=== PATIENT | female | born 1945 | race Caucasian/White ===

== ENCOUNTER 2020-04-13 11:35 | Outpatient (REF) | payer MEDICARE, OTHER, SELFPAY ==
[2020-04-13 14:23] LABS: Hematocrit 37.1 % (37-47); Hemoglobin 11.7 g/dl (12.0-16.0); Mean Corpuscular HGB Conc 31.5 g/dl (31.0-35.0); Mean Corpuscular Volume 98.4 fL (80-98); Platelet Count 209 X10*3/uL (160-400); Red Blood Count 3.77 X10*6/uL (4.20-5.50); Red Cell Distribution Width 17.4 % (11.0-16.0); White Blood Count 14.7 X10*3/uL (4.8-10.8)
[2020-04-13 14:33] LABS: NRBC Pct Auto 2.1 /100WBC (0.0-0.2)
[2020-04-13 14:50] LABS: Anion Gap 14 (12-20); Blood Urea Nitrogen 16 mg/dL (9-16); Calcium 9.6 mg/dL (8.4-10.2); Carbon Dioxide 27 mmol/L (22-29); Chloride 103 mmol/L (96-108); Estimated Glomerular Filt Rate 54; Potassium 5.2 mmol/l (3.3-5.1); Sodium 139 mmol/L (135-145)
[2020-04-13 14:55] LABS: Band Neutrophils Percent 4 % (3-5); Basophils Percent Manual 7 % (0-1); Eosinophils Absolute Manual 0.4 X10*3/UL (0.0-0.8); Eosinophils Percent Manual 3 % (0-4); Lymphocytes Absolute Manual 2.1 X10*3/uL (0.6-4.8); Lymphocytes Percent Manual 14 % (20-40); Metamyelocytes Absolute 0.6 X10*3/uL; Metamyelocytes Percent 4 %; Myelocytes Absolute 0.7 X10*/uL; Myelocytes Percent 5 %; Neutrophils Absolute Manual 9.8 X10*3/uL (2.2-7.9); Neutrophils Percent Manual 63 % (45-73); Nucleated Red Blood Cells 3 /100WBC (0-0); RBC Morphology NOTED
[2020-04-13 14:56] LABS: Ovalocytes 1+; Polychromasia 2+; Tear Drop Cells 1+
[2020-04-13 14:58] LABS: Platelet Estimate NORMAL (NORMAL); Platelet Morphology Comment NORMAL
== END 2020-04-13 11:36 | disposition home or self-care (01) ==
LOC: HO.HMGCLDS 11:35
PROVIDERS: PCP Internal Medicine; Visit Provider Internal Medicine Hypertension Specialist
DX: I12.9 Hypertensive chronic kidney disease with stage 1 through stage 4 chronic kidney disease, or unspecified chronic kidney disease (principal); N18.2 Chronic kidney disease, stage 2 (mild)
CPT/HCPCS: 36415; 80051; 82310; 82565; 84520; 85007; 85027

== ENCOUNTER 2020-11-12 07:50 | Outpatient (REF) | payer MEDICARE, OTHER, SELFPAY ==
[2020-11-12 11:45] LABS: Hematocrit 29.4 % (37-47); Hemoglobin 9.6 g/dl (12.0-16.0); Mean Corpuscular HGB Conc 32.7 g/dl (31.0-35.0); Mean Corpuscular Hemoglobin 31.1 pg (27.0-33.0); Mean Corpuscular Volume 95.1 fL (80-98); NRBC Pct Auto 0.9 /100WBC (0.0-0.2); Platelet Count 216 X10*3/uL (160-400); Red Blood Count 3.09 X10*6/uL (4.20-5.50); Red Cell Distribution Width 17.9 % (11.0-16.0)
[2020-11-12 11:48] LABS: WBC ABN SCTR FOR CBC 1
[2020-11-12 12:04] LABS: Alanine Aminotransferase 31 U/L (0-31); Albumin Level 4.1 g/dL (3.5-5.0); Alkaline Phosphatase 117 U/L (39-117); Anion Gap 14 (12-20); Aspartate Amino Transferase 20 U/L (5-31); Bilirubin Total 0.4 mg/dL (0.0-1.0); Blood Urea Nitrogen 27 mg/dL (9-16); Calcium 8.8 mg/dL (8.4-10.2); Carbon Dioxide 25 mmol/L (22-29); Chloride 96 mmol/L (96-108); Estimated Glomerular Filt Rate 46; Glucose Random 89 mg/dL (60-115); Magnesium 2.5 mg/dL (1.6-2.6); Potassium 5.2 mmol/L (3.3-5.1); Sodium 130 mmol/L (135-145); Total Protein 6.3 g/dL (6.5-8.0); Uric Acid 3.8 mg/dL (2.4-5.7)
[2020-11-12 12:28] LABS: Thyroid Stimulating Hormone 1.81 uIU/mL (0.32-4.0)
[2020-11-12 12:31] LABS: Folate 17.7 ng/mL (> or = 4.0); Vitamin B12 757 pg/mL (200-900)
[2020-11-12 14:50] LABS: White Blood Count 19.6 X10*3/uL (4.8-10.8)
[2020-11-12 14:52] LABS: Band Neutrophils Percent 12 % (3-5); Basophils Abs Manual 1.2 X10*3/uL (0.0-0.3); Basophils Percent Manual 6 % (0-1); Blast Percent 2 %; Blastocytes Absolute 0.4 X10*3/uL; Eosinophils Percent Manual 5 % (0-4); Lymphocytes Absolute Manual 2.4 X10*3/uL (0.6-4.8); Lymphocytes Percent Manual 12 % (20-40); Metamyelocytes Percent 5 %; Monocytes Absolute Manual 0.6 X10*3/uL (0.0-1.2); Monocytes Percent Manual 3 % (2-11); Myelocytes Absolute 1.6 X10*/uL; Myelocytes Percent 8 %; Neutrophils Absolute Manual 10.8 X10*3/uL (2.2-7.9); Neutrophils Percent Manual 43 % (45-73); Nucleated Red Blood Cells 1 /100WBC (0-0); Promyelocytes Absolute 0.8 X10*3/uL; Promyelocytes Percent 4 %; RBC Morphology NOTED
[2020-11-12 14:53] LABS: Acanthocytes 2+ (3-5) /OIF; Macrocytosis 1+ (5-14) /OIF; Microcytosis 1+ (5-14) /OIF; Polychromasia 1+ (0-2) /OIF; Schistocytes 2+ (3-5) /OIF; Tear Drop Cells 2+ (3-5) /OIF
[2020-11-12 14:54] LABS: Giant Platelet PRESENT; Platelet Estimate NORMAL (NORMAL); Platelet Morphology Comment NOTED
== END 2020-11-12 07:51 | disposition home or self-care (01) ==
LOC: HO.HMGCLDS 07:50
PROVIDERS: PCP Internal Medicine; Visit Provider Internal Medicine
DX: I10 Essential (primary) hypertension (principal)
CPT/HCPCS: 36415; 80053; 82607; 82746; 83735; 84439; 84443; 84550; 85007; 85027

== ENCOUNTER 2020-12-07 14:29 | Outpatient (REF) | payer MEDICARE, OTHER, SELFPAY ==
[2020-12-07 15:26] LABS: Anion Gap 15 (12-20); Blood Urea Nitrogen 19 mg/dL (9-16); Calcium 8.8 mg/dL (8.4-10.2); Carbon Dioxide 23 mmol/L (22-29); Chloride 96 mmol/L (96-108); Estimated Glomerular Filt Rate 55; Potassium 4.9 mmol/L (3.3-5.1); Sodium 129 mmol/L (135-145)
== END 2020-12-07 14:30 | disposition home or self-care (01) ==
LOC: HO.LAB 14:29
PROVIDERS: PCP Internal Medicine; Visit Provider Internal Medicine Hypertension Specialist
DX: I10 Essential (primary) hypertension (principal)
CPT/HCPCS: 36415; 80051; 82310; 82565; 84520

== ENCOUNTER 2021-02-01 09:20 | Outpatient (REF) | payer MEDICARE, OTHER, SELFPAY ==
--- NOTE | ~2021-02-01 | FL_ITS ---
EXAMINATION: FL BARIUM SWALLOW CLINICAL INFORMATION: Dysphasia. COMPARISON: None TECHNIQUE: Barium swallow examination is performed using fluoroscopic evaluation in addition to multiple fluoroscopic spot views. The patient is imaged both upright and prone and using both thick and thin sulfate along with effervescent granules. Fluoroscopy time: 1.4 minutes DAP: 4.053 Gycm2 Images: 33 FINDINGS: There is normal apposition of the vocal cords while saying E. There is normal elevation of the soft palate while saying candy. Patient was able to swallow a half-inch diameter barium tablet without difficulty. No nasopharyngeal reflux or tracheal aspiration. No Zenker's diverticulum. No persistent esophageal stricture was identified. There were a few tertiary contractions noted. A Schatzki's ring was identified at the gastroesophageal junction. There is a small hiatal hernia seen. There was gastroesophageal reflux to the chava which cleared slowly. No ulcerations identified. FL/FL barium swallow IMPRESSION: Schatzki's ring. Half-inch diameter tablet passed through the gastroesophageal junction. Small hiatal hernia with gastroesophageal reflux to the chava.
== END 2021-02-01 09:21 | disposition home or self-care (01) ==
LOC: HO.XRAY 09:20
PROVIDERS: PCP Internal Medicine; Visit Provider Otolaryngology
DX: R13.10 Dysphagia, unspecified (principal)
CPT/HCPCS: 74220

== ENCOUNTER 2021-02-12 13:49 | Outpatient (REF) | payer MEDICARE, OTHER, SELFPAY ==
[2021-02-12 14:18] LABS: Hemoglobin 10.5 g/dl (12.0-16.0); Mean Corpuscular HGB Conc 31.8 g/dl (31.0-35.0); Mean Corpuscular Hemoglobin 31.7 pg (27.0-33.0); Mean Corpuscular Volume 99.7 fL (80-98); Mean Platelet Volume 9.8 fL (9.4-12.3); Platelet Count 181 X10*3/uL (160-400); Red Blood Count 3.31 X10*6/uL (4.20-5.50); White Blood Count 14.6 X10*3/uL (4.8-10.8)
[2021-02-12 14:20] LABS: NRBC Pct Auto 3.2 /100WBC (0.0-0.2)
[2021-02-12 15:01] LABS: Band Neutrophils Percent 18 % (3-5); Basophils Abs Manual 1.2 X10*3/uL (0.0-0.3); Basophils Percent Manual 8 % (0-1); Blast Percent 3 %; Blastocytes Absolute 0.4 X10*3/uL; Eosinophils Absolute Manual 1.2 X10*3/UL (0.0-0.8); Eosinophils Percent Manual 8 % (0-4); Lymphocytes Absolute Manual 2.6 X10*3/uL (0.6-4.8); Lymphocytes Percent Manual 18 % (20-40); Monocytes Absolute Manual 1.2 X10*3/uL (0.0-1.2); Monocytes Percent Manual 8 % (2-11); Myelocytes Absolute 0.3 X10*/uL; Myelocytes Percent 2 %; Neutrophils Absolute Manual 7.6 X10*3/uL (2.2-7.9); Neutrophils Percent Manual 34 % (45-73); Nucleated Red Blood Cells 2 /100WBC (0-0); Promyelocytes Absolute 0.1 X10*3/uL; Promyelocytes Percent 1 %
[2021-02-12 15:02] LABS: Hypochromasia 1+ (5-14) /OIF; Macrocytosis 1+ (5-14) /OIF; Polychromasia 1+ (0-2) /OIF; RBC Morphology NOTED
[2021-02-12 15:03] LABS: Platelet Estimate NORMAL (NORMAL); Platelet Morphology Comment NORMAL; Tear Drop Cells 1+ (0-2) /OIF; WBC Morphology Comment DYSMORPHIC
== END 2021-02-12 13:50 | disposition home or self-care (01) ==
LOC: HO.LAB 13:49
PROVIDERS: PCP Internal Medicine; Visit Provider Internal Medicine
DX: I10 Essential (primary) hypertension (principal)
CPT/HCPCS: 36415; 85007; 85027

== ENCOUNTER 2021-03-21 17:55 | Inpatient (IN) | payer MEDICARE, OTHER, SELFPAY ==
[2021-03-21] VITALS (13 sets, daily range): BP systolic 122–179; BP diastolic 30–83; PULSE 81–100; RESP 16–20; TEMP 36.5–36.8; O2SAT 90–100; BMI 22.8
--- NOTE | ~2021-03-21 | CT_ITS ---
EXAMINATION: CT CHEST WITHOUT IV CONTRAST CT ABDOMEN AND PELVIS WITHOUT IV CONTRAST CLINICAL INFORMATION: 75-year-old female with clinical suspicion for pneumonia and small bowel obstruction. Previously dilated small bowel on 02/05/2020. History of polycythemia vera and myelofibrosis. COMPARISON: CT abdomen and pelvis from 02/02/2020. TECHNIQUE: Noncontrast multidetector CT imaging examination of the chest, abdomen and pelvis was performed. No IV contrast given. Axial images are displayed at 0.6 mm and 5 mm slice thickness. Coronal and sagittal reformatted images were generated at the technologist's workstation and submitted for review. This CT examination was performed using dose optimization techniques as appropriate, variously including the following: *Automated exposure control *Adjustment of mA and/or kV according to patient size (this includes techniques or standardized protocols for targeted exams where dose is matched to indication/reason for exam; i.e. extremities or head) *Use of iterative reconstruction technique DLP: 466 mGy-cm for the abdomen and pelvis CT and 529 mGy-cm for the chest CT FINDINGS: CHEST - LUNGS AND PLEURA: The patient was moving on this CT examination. Trachea and central bronchi are widely patent and normal in caliber. There is wall calcification of the tracheobronchial tree, a relatively common finding in elderly patients. No evidence of pulmonary edema, consolidation or pleural effusion. No pneumothorax. There is linear opacity of atelectasis in the lingula and lateral left lower lobe. MEDIASTINUM/LOWER NECK: The heart size is normal. Atherosclerotic calcification of coronary arteries and thoracic aorta. No aortic aneurysm. The mitral valve annulus is calcified. No pericardial effusion. Moderate sized sliding-type hiatal hernia has not significantly changed compared to 02/02/2020. No pneumomediastinum. Thyroid gland is grossly unremarkable. LYMPHATICS: No pathologic sized axillary, hilar or mediastinal lymph nodes. CHEST WALL/BONES: No chest wall mass or hematoma. Chronic, diffuse sclerosis of bones is noted in this patient with history of myelofibrosis. Evaluation of bones is partially limited by motion degradation of images. ABDOMEN AND PELVIS - HEPATOBILIARY: Liver has normal size, contour and attenuation. Gallbladder is unremarkable. No intrahepatic or extrahepatic bile duct dilatation. PANCREAS: No edema, mass or pancreatic ductal dilatation. SPLEEN: Chronically enlarged spleen measures approximately 15.5 cm craniocaudal. ADRENAL GLANDS: Normal. KIDNEYS AND URETERS: Kidneys are normal in size and attenuation. No nephrolithiasis, hydronephrosis or perinephric fluid collection. BOWEL AND PERITONEUM: No dilated bowel loops. No ascites or pneumoperitoneum. Colonic diverticulosis without diverticulitis. No mesenteric fat stranding. No evidence of inflammatory change or obstruction along the gastrointestinal tract. ABDOMINAL WALL: Unremarkable. VESSELS: Atherosclerosis of the abdominal aorta without aneurysm. No retroperitoneal hematoma. LYMPH NODES: No pathologic sized lymph nodes in the abdomen or pelvis. No inguinal lymphadenopathy. BLADDER AND PELVIC VISCERA: The uterus is absent. No adnexal mass. Urinary bladder has a grossly normal appearance. No pelvic free fluid. MUSCULOSKELETAL: Bones are chronically sclerotic in this patient with history of myelofibrosis. No acute abnormalities in the degenerated lumbar spine. There is vacuum disc phenomenon at L2-L3 and L4-L5. Chronic, grade 1 anterolisthesis at L3-L4 and L4-L5. CT/CT abdomen pelvis wo con IMPRESSION: * No evidence of pneumonia or pleural effusion. * Colonic diverticulosis without diverticulitis. * No evidence of small bowel obstruction. * Chronic splenomegaly and chronic osseous sclerosis are noted in this patient with history of polycythemia vera and myelofibrosis. * Moderate hiatal hernia.
--- NOTE | ~2021-03-21 | CT_ITS ---
EXAMINATION: CT HEAD WITHOUT CONTRAST CLINICAL INFORMATION: Headache COMPARISON: Head CT from 03/05/2018 and MRI brain from 03/06/2018 TECHNIQUE: Contiguous axial imaging was performed from the skull base to vertex without intravenous administration of contrast. This CT examination was performed using dose optimization techniques as appropriate, variously including the following: *Automated exposure control *Adjustment of mA and/or kV according to patient size (this includes techniques or standardized protocols for targeted exams where dose is matched to indication/reason for exam; i.e. extremities or head) *Use of iterative reconstruction technique DLP: 1245 mGy-cm FINDINGS: The patient was moving, not cooperating for the examination. Images were repeated but remained motion degraded. There is atherosclerotic calcification of cavernous carotid arteries. The mild small vessel ischemic changes of supratentorial white matter are better depicted on the brain MRI from 03/06/2018. Within limitations of this examination, there is no overt intracranial hemorrhage. No evidence of an acute major vascular territory infarction. The peres-white matter differentiation is maintained. The ventricles have normal size and configuration; no hydrocephalus. The brainstem and cerebellum are unremarkable. The calvarium has an intact appearance. The visualized paranasal sinuses, mastoid air cells and middle ear cavities are well aerated. The orbits and globes are unremarkable. CT/CT head/brain wo con IMPRESSION: Motion degraded CT examination of the brain. No evidence of acute intracranial pathology.
--- NOTE | 2021-03-21 18:33 | ECG_ITS ---
Test Reason : EPEAT Blood Pressure : / mmHG Vent. Rate : 153 BPM Atrial Rate : 153 BPM P-R Int : 140 ms QRS Dur : 074 ms QT Int : 320 ms P-R-T Axes : 035 057 049 degrees QTc Int : 510 ms Sinus tachycardia with Premature supraventricular complexes ST depression in Anterolateral leads Cannot rule out Inferior infarct (cited on or before 05-MAR-2018) Abnormal ECG When compared with ECG of 21-MAR-2021 18:27, Premature supraventricular complexes are now Present Vent. rate has increased BY [address] now depressed in Anterolateral leads Referred By: Erasmo Juarez Electronically Signed By:MANDIE JACOBSON
--- NOTE | 2021-03-21 18:45 | PC.NURSE ---
while this nurse was going to speak with charge nurse about the patient and where she should be placed, patient vomited on herself and floor and seemed to become less oriented than she was previously during triage, patient also began having rigors, myself and charge nurse assisted patient into wheelchair- pt seemed to have difficulty following directions as we assisted patient, she also looked very pale in color. patient was brought back to room 7, patient was hooked up to the laboratory monitor and a ekg was performed by this nurse and charge nurse. provider was notified.
[2021-03-21 18:49] LABS: Hematocrit 34.7 % (37-47); Hemoglobin 11.5 g/dl (12.0-16.0); Mean Corpuscular HGB Conc 33.1 g/dl (31.0-35.0); Mean Corpuscular Hemoglobin 30.7 pg (27.0-33.0); Mean Corpuscular Volume 92.8 fL (80-98); Mean Platelet Volume 9.6 fL (9.4-12.3); Platelet Count 187 X10*3/uL (160-400); Red Blood Count 3.74 X10*6/uL (4.20-5.50); Red Cell Distribution Width 15.5 % (11.0-16.0); White Blood Count 11.4 X10*3/uL (4.8-10.8)
[2021-03-21 18:52] LABS: NRBC Pct Auto 2.9 /100WBC (0.0-0.2)
[2021-03-21 19:03] LABS: Anion Gap 16 (12-20); Blood Urea Nitrogen 15 mg/dL (9-16); Calcium 10.2 mg/dL (8.4-10.2); Carbon Dioxide 25 mmol/L (22-29); Chloride 98 mmol/L (96-108); Creatinine Clr Calc Pharmacy 41.7; Estimated Glomerular Filt Rate 49; Glucose Random 111 mg/dL (60-115); Potassium 4.3 mmol/L (3.3-5.1); Sodium 135 mmol/L (135-145)
[2021-03-21 19:05] LABS: Adenovirus PCR Not Detected (Not Detect.); Bordetella parapertussis PCR Not Detected (Not Detect.); Bordetella pertussis PCR Not Detected (Not Detect.); Chlamydia pneumoniae PCR Not Detected (Not Detect.); Coronavirus 229E PCR Not Detected (Not Detect.); Coronavirus HKU1 PCR Not Detected (Not Detect.); Coronavirus NL63 PCR Not Detected (Not Detect.); Coronavirus OC43 PCR Not Detected (Not Detect.); Human metapneumovirus PCR Not Detected (Not Detect.); Influenza A PCR Not Detected (Not Detect.); Influenza B PCR Not Detected (Not Detect.); Mycoplasma pneumoniae PCR Not Detected (Not Detect.); Parainfluenza 1 PCR Not Detected (Not Detect.); Parainfluenza 2 PCR Not Detected (Not Detect.); Parainfluenza 3 PCR Not Detected (Not Detect.); Parainfluenza 4 PCR Not Detected (Not Detect.); RSV PCR Not Detected (Not Detect.); Rhino/Enterovirus PCR Not Detected (Not Detect.); SARS-CoV-2 PCR Not Detected (Not Detect.)
[2021-03-21 19:14] LABS: Troponin-I High Sensitivity 28.5 ng/L (<3.5-17.0)
[2021-03-21 19:18] LABS: Acanthocytes 1+ (0-2) /OIF; Atypical Lymph Absolute Manual 0.1 x10*3/uL; Atypical Lymphs Percent Manual 1 % (0-6); Band Neutrophils Percent 14 % (3-5); Basophils Abs Manual 1.4 X10*3/uL (0.0-0.3); Basophils Percent Manual 12 % (0-1); Eosinophils Absolute Manual 0.6 X10*3/UL (0.0-0.8); Eosinophils Percent Manual 5 % (0-4); Large Platelet PRESENT; Lymphocytes Absolute Manual 0.9 X10*3/uL (0.6-4.8); Lymphocytes Percent Manual 8 % (20-40); Macrocytosis 1+ (5-14) /OIF; Metamyelocytes Absolute 0.2 X10*3/uL; Metamyelocytes Percent 2 %; Monocytes Absolute Manual 0.6 X10*3/uL (0.0-1.2); Monocytes Percent Manual 5 % (2-11); Myelocytes Absolute 0.1 X10*/uL; Myelocytes Percent 1 %; Neutrophils Absolute Manual 7.3 X10*3/uL (2.2-7.9); Neutrophils Percent Manual 50 % (45-73); Nucleated Red Blood Cells 1 /100WBC (0-0); Platelet Estimate SLIGHTLY DECREASED (NORMAL); Platelet Morphology Comment AGRANULAR; Promyelocytes Absolute 0.2 X10*3/uL; Promyelocytes Percent 2 %; RBC Morphology NOTED; Tear Drop Cells 2+ (3-5) /OIF
[2021-03-21 19:19] LABS: Polychromasia 2+ (3-5) /OIF
[2021-03-21] MEDS: LORazepam 2 MG/ML VIAL 1 MG IVPUSH ×2 (19:34→19:36)
[2021-03-21 19:37] LABS: Influenza A PCR NEGATIVE (Negative); Influenza B PCR NEGATIVE (Negative); Resp Syncy Virus RNA Qual PCR NEGATIVE (Negative); SARS COV2 PCR INHOUSE NEGATIVE (Negative)
--- NOTE | 2021-03-21 19:54 | ED_ITS ---
HPI - General Adult General Chief complaint: General Medical Stated complaint: headache n/v chills Time Seen by Provider: 03/21/21 18:30 Source: patient and family Mode of arrival: ambulatory Limitations: no limitations History of Present Illness HPI narrative: Patient presents to ED for headache, chills, and burping. Patient states she is extremely cold. Patient denies any coughing, abdominal pain, or any symptoms. Related Data Home Medications Medication Instructions Recorded Confirmed allopurinol 300 mg tablet 300 mg PO DAILY 04/20/20 03/21/21 aspirin 81 mg tablet,delayed 81 mg PO DAILY 04/20/20 03/21/21 release (Adult Aspirin Regimen) esomeprazole magnesium 20 mg 20 mg PO DAILY 04/20/20 03/21/21 capsule,delayed release melatonin 5 mg capsule 5 mg PO DAILY cap 04/20/20 03/21/21 multivitamin with minerals-folic 1 tab PO DAILY 04/20/20 03/21/21 acid 200 mcg chewable tablet (Adult Multivitamin Gummies) ruxolitinib 10 mg tablet (Jakafi) 15 mg PO BID tab 11/11/20 03/21/21 Previous Rx's Medication Instructions Recorded amlodipine 5 mg tablet 5 mg PO DAILY #90 tab 01/25/21 zolpidem 5 mg tablet (Ambien) 5 mg PO BEDTIME PRN 30 Days #30 tab 02/12/21 lorazepam 0.5 mg tablet 0.5 mg PO BEDTIME PRN 30 Days #30 03/18/21 tab Allergies Allergy/AdvReac Type Severity Reaction Status Date / Time Flu vaccine Allergy Unknown Whole arm Verified 03/21/21 18:10 redness/itchy Review of Systems Review of Systems: Yes all other systems are reviewed and are negative Constitutional: Constitutional: Reports as per HPI, Reports no additional constitutional complaints, Reports chills and Reports headache(s) Eyes: Eyes: Reports as per HPI and Reports no additional eye complaints ENT: Reports system reviewed and no additional complaints, except as documented, Reports as per HPI and Reports headache(s) Cardiovascular: Cardiovascular: Reports as per HPI and Reports no additional cardiovascular complaints Respiratory: Respiratory: Reports as per HPI and Reports no additional respiratory complaints Gastrointestinal: Gastrointestinal: Reports as per HPI and Reports no additional gastrointestinal complaints Musculoskeletal: Musculoskeletal: Reports no additional musculoskeletal complaints and Reports as per HPI Integumentary/Breasts: Skin/Breast: Reports system reviewed and no additional complaints, except as docu and Reports as per HPI Neurologic: Reports system reviewed and no additional complaints, except as documented, Reports as per HPI and Reports headache(s) Psychiatric: Psychiatric: Reports no additional psychiatric complaints and Reports as per HPI [facility] Past Medical History Medical History (Updated 03/21/21 @ 21:59 by DAHLIA Monet) Anxiety Fracture of left side of mandible GERD (gastroesophageal reflux disease) Hypertension Hypertriglyceridemia Mandibular fracture Migraine Myeloproliferative disorder SBO (small bowel obstruction) Surgical History History of arthroscopy of left knee History of colonoscopy History of esophagogastroduodenoscopy (EGD) History of reduction of closed fracture History of total abdominal hysterectomy and bilateral salpingo-oophorectomy Family History Family History Father Lung cancer Emphysema lung Mother History of hip replacement History of knee replacement Brother Thyroid nodule Social History Social History (Updated 12/07/20 @ 15:28 by BERYL Giron) Housing: House Alcohol intake: unknown Patient Tobacco Use Status: Never used Tobacco e-Cigarette/Vaping Use: Never Used Second Hand Smoke Exposure: No Advance Directives: No Advance Directives Information Provided: Yes service: No Current occupational status: retired Physical Exam Vital Signs: Vital Signs: Last Vital Signs Temp 98.3 F 03/21/21 18:10 Pulse 82 03/21/21 18:10 Resp 18 03/21/21 18:10 BP 179/67 H 03/21/21 18:10 Pulse Ox 98 03/21/21 18:10 Body Mass Index 22.8 Const: General: cooperative, healthy appearing and acute distress Orientation/consciousness: patient oriented x3 HENMT: Head: Yes normal to inspection, Yes No palpable skull fracture present, Yes normocephalic, Yes atraumatic and No abrasion Eyes: General: appearance normal, both eyes and all related structures Neck: Neck: Yes normal visual inspection, Yes full ROM, Yes no lymphadenopathy, Yes no meningeal signs, Yes trachea midline, Yes supple and No tender Chest: Chest palpation & inspection: normal inspection of the chest and normal palpation of entire chest wall Resp: Effort & Inspection: normal respiratory effort and able to speak in complete sentences Auscultation: clear to auscultation bilaterally Cardio: Jugular venous distension: no JVD Heart sounds: S1 normal heart sound present and S2 normal heart sound present GI: Inspection: Yes normal to inspection and No abdominal wall ecchymosis Palpation (GI): Soft to palpation, not firm, nontender, no guarding and not rigid : General: No CVA tenderness and Yes no CVA tenderness Back/Spine/Pelvis: Back: no CVA tenderness, No CVA tenderness and No back tenderness Skin: General skin exam: no rashes or lesions noted and elasticity normal Neuro: General: patient oriented x3, gait normal, no meningeal signs and CN's II-XI intact bilaterally Cranial nerves: Yes CN's II-XII intact bilaterally Extrem: General: Yes normal to inspection and Yes full ROM Psych: Appearance: grossly normal, well kempt and not disheveled Course Course Course Narrative: Patient will have medical evaluation which include COVID swelling and EKG, labs, imaging. Reevaluation(s) Reevaluation #1: During ED evaluation. Patient's mental status unchanged. Patient became aggressive. Patient began checking of her clothes. Patient began fighting with staff. Patient also vomiting. His CT scan, chest CT, abdominal CT came back normal. COVID swab is negative. EKG negative STEMI. First troponin positive. COVID swab, influenza, and RSV came back negative. Patient is not alert oriented x3. Patient is making random statements including that she wants to leave and she is cold. Spoke with George who states patient headache began since early this morning. He denies patient having any alcohol or drug abuse. He denies patient having any mental health issues. Patient is not on any diabetic medication. Waiting for UA analysis. Possible LP candidate. Patient given Haldol and Ativan order to draw lactate, coags, and urine. Time: 20:09 Reevaluation #2: Patient now alert oriented x3. Patient knows address. Patient knows name. Patient knows birthday. Patient knows her name. Ativan given to her it might have caused her to become altered patient was given Haldol which seemed to calm her and rear reoriented Time: 20:45 Reevaluation #3: Patient once again now and altered, aggressive, trying to take her clothes off, trying to get out of bed, hitting staff. Called and he states patient does not have any history of dementia and is always alert oriented x3. Due to waxing and waning of altered mental status with no cause for acute delirium lumbar puncture was discussed with Robert. Vazquez the agreed and gave consent for lumbar puncture. He was made aware of risks. Dr. Beasley witnessed agreeing to sedation and also lumbar puncture. Time: 21:01 Additional Reevaluation(s): Lumbar puncture was successful. Case presented to hospitalist, Dr. Ramos for admission. Dr. Beasley Will follow up with LP results. 21:59 2nd troponin came back 62.7 which is increase of more than 50%. Hospitalist made aware. Recommend contacting Cardiology. Dr. Ramos, recommended patient received antibiotics and antiviral treatment as we await lumbar puncture CSF results. 22:30. Spoke with Dr. Vance he was informed of patient's history, physical exam, and diagnostics. He was sent pictures of the EKG, troponin levels, and lactic acid. He does not recommend heparin and states most likely troponin due to sepsis. Hospitalist made aware. 22:38 Medical Decision Making MDM Narrative Medical decision making narrative: Altered mental status. Acute delirium Lab Data Result diagrams: 03/21/21 18:44 03/21/21 18:44 Labs: Lab Results 03/21/21 03/21/21 03/21/21 Range/Units 18:44 18:44 18:44 WBC 11.4 H (4.8-10.8) X10*3/uL RBC 3.74 L (4.20-5.50) X10*6/uL Hgb 11.5 L (12.0-16.0) g/dl Hct 34.7 L (37-47) % MCV 92.8 (80-98) fL MCH 30.7 (27.0-33.0) pg MCHC 33.1 (31.0-35.0) g/dl RDW 15.5 (11.0-16.0) % Plt Count 187 (160-400) X10*3/uL MPV 9.6 (9.4-12.3) fL Immature Gran % (Auto) Cancelled Neut % (Auto) Cancelled Lymph % (Auto) Cancelled [place] % (Auto) Cancelled Eos % (Auto) Cancelled Baso % (Auto) Cancelled Lymph # (Auto) Cancelled [place] # (Auto) Cancelled Eos # (Auto) Cancelled Baso # (Auto) Cancelled Abs Immat Gran (auto) Cancelled Absolute Neuts (auto) Cancelled Absolute Nucleated RBC 0.330 H (0.0-0.012) X10*3/uL Nucleated RBC % (auto) 2.9 H (0.0-0.2) /100WBC Neutrophils % (Manual) 50 (45-73) % Band Neutrophils % 14 H (3-5) % Lymphocytes % (Manual) 8 L (20-40) % Atypical Lymphs % (Man) 1 (0-6) % Monocytes % (Manual) 5 (2-11) % Eosinophils % (Manual) 5 H (0-4) % Basophils % (Manual) 12 H (0-1) % Metamyelocytes % 2 % Myelocytes % 1 % Promyelocytes % 2 % Abs Neuts (Manual) 7.3 (2.2-7.9) X10*3/uL Lymphocytes # (Manual) 0.9 (0.6-4.8) X10*3/uL Atyp Lymphs # (Manual) 0.1 x10*3/uL Monocytes # (Manual) 0.6 (0.0-1.2) X10*3/uL Eosinophils # (Manual) 0.6 (0.0-0.8) X10*3/UL Basophils # (Manual) 1.4 H (0.0-0.3) X10*3/uL Metamyelocytes # 0.2 X10*3/uL Myelocytes # 0.1 X10*/uL Promyelocytes # 0.2 X10*3/uL Nucleated RBCs 1 H (0-0) /100WBC Platelet Estimate SLIGHTLY DECREASED (NORMAL) Large Platelets PRESENT Plt Morphology Comment AGRANULAR RBC Morphology NOTED Polychromasia 2+ (3-5) /OIF Macrocytosis 1+ (5-14) /OIF Tear Drop Cells 2+ (3-5) /OIF Acanthocytes (Spur) 1+ (0-2) /OIF PT (9.9-13.0) SEC INR (0.9-1.1) APTT (24.1-38.0) SEC Sodium 135 (135-145) mmol/L Potassium 4.3 (3.3-5.1) mmol/L Chloride 98 (96-108) mmol/L Carbon Dioxide 25 (22-29) mmol/L Anion Gap 16 (12-20) BUN 15 (9-16) mg/dL Creatinine 1.09 (0.5-1.4) mg/dL Estim Creat Clear Calc 41.7 Estimated GFR 49 Random Glucose 111 (60-115) mg/dL Lactic Acid (0.5-2.0) mmol/L Calcium 10.2 D (8.4-10.2) mg/dL Troponin I High Sens 28.5 H* (<3.5-17.0) ng/L Urine Color Urine Appearance Urine pH (5.0-8.0) Ur Specific [place] (1.005-1.025) Urine Protein (NEG-TRACE) MG/DL Urine Glucose (UA) (NEG) MG/DL Urine Ketones (NEG) MG/DL Urine Blood (NEG) Urine Nitrite (NEG) Ur Leukocyte Esterase (NEG) Urine RBC (0) /HPF Urine WBC (0-4) /HPF Ur Squamous Epith Cells /LPF Amorphous Sediment /LPF Urine Bacteria /LPF Urine Opiates Screen (Not Detect) Urine Fentanyl Screen (Not Detect) Ur Barbiturates Screen (Not Detect) Ur Phencyclidine Scrn (Not Detect) Ur Amphetamines Screen (Not Detect) U Benzodiazepines Scrn (Not Detect) Urine Cocaine Screen (Not Detect) U Marijuana (THC) Screen (Not Detect) Ethyl Alcohol mg/dL Coronavirus (PCR) (Negative) Influenza Type A (PCR) (Negative) Influenza Type B (PCR) (Negative) RSV RNA Qual (PCR) (Negative) 03/21/21 03/21/21 03/21/21 Range/Units 18:45 19:48 19:48 WBC (4.8-10.8) X10*3/uL RBC (4.20-5.50) X10*6/uL Hgb (12.0-16.0) g/dl Hct (37-47) % MCV (80-98) fL MCH (27.0-33.0) pg MCHC (31.0-35.0) g/dl RDW (11.0-16.0) % Plt Count (160-400) X10*3/uL MPV (9.4-12.3) fL Immature Gran % (Auto) Neut % (Auto) Lymph % (Auto) [place] % (Auto) Eos % (Auto) Baso % (Auto) Lymph # (Auto) [place] # (Auto) Eos # (Auto) Baso # (Auto) Abs Immat Gran (auto) Absolute Neuts (auto) Absolute Nucleated RBC (0.0-0.012) X10*3/uL Nucleated RBC % (auto) (0.0-0.2) /100WBC Neutrophils % (Manual) (45-73) % Band Neutrophils % (3-5) % Lymphocytes % (Manual) (20-40) % Atypical Lymphs % (Man) (0-6) % Monocytes % (Manual) (2-11) % Eosinophils % (Manual) (0-4) % Basophils % (Manual) (0-1) % Metamyelocytes % % Myelocytes % % Promyelocytes % % Abs Neuts (Manual) (2.2-7.9) X10*3/uL Lymphocytes # (Manual) (0.6-4.8) X10*3/uL Atyp Lymphs # (Manual) x10*3/uL Monocytes # (Manual) (0.0-1.2) X10*3/uL Eosinophils # (Manual) (0.0-0.8) X10*3/UL Basophils # (Manual) (0.0-0.3) X10*3/uL Metamyelocytes # X10*3/uL Myelocytes # X10*/uL Promyelocytes # X10*3/uL Nucleated RBCs (0-0) /100WBC Platelet Estimate (NORMAL) Large Platelets Plt Morphology Comment RBC Morphology Polychromasia /OIF Macrocytosis /OIF Tear Drop Cells /OIF Acanthocytes (Spur) /OIF PT 12.4 (9.9-13.0) SEC INR 1.1 (0.9-1.1) APTT 40.1 H (24.1-38.0) SEC Sodium (135-145) mmol/L Potassium (3.3-5.1) mmol/L Chloride (96-108) mmol/L Carbon Dioxide (22-29) mmol/L Anion Gap (12-20) BUN (9-16) mg/dL Creatinine (0.5-1.4) mg/dL Estim Creat Clear Calc Estimated GFR Random Glucose (60-115) mg/dL Lactic Acid (0.5-2.0) mmol/L Calcium (8.4-10.2) mg/dL Troponin I High Sens (<3.5-17.0) ng/L Urine Color Urine Appearance Urine pH (5.0-8.0) Ur Specific [place] (1.005-1.025) Urine Protein (NEG-TRACE) MG/DL Urine Glucose (UA) (NEG) MG/DL Urine Ketones (NEG) MG/DL Urine Blood (NEG) Urine Nitrite (NEG) Ur Leukocyte Esterase (NEG) Urine RBC (0) /HPF Urine WBC (0-4) /HPF Ur Squamous Epith Cells /LPF Amorphous Sediment /LPF Urine Bacteria /LPF Urine Opiates Screen (Not Detect) Urine Fentanyl Screen (Not Detect) Ur Barbiturates Screen (Not Detect) Ur Phencyclidine Scrn (Not Detect) Ur Amphetamines Screen (Not Detect) U Benzodiazepines Scrn (Not Detect) Urine Cocaine Screen (Not Detect) U Marijuana (THC) Screen (Not Detect) Ethyl Alcohol < 10 mg/dL Coronavirus (PCR) NEGATIVE (Negative) Influenza Type A (PCR) NEGATIVE (Negative) Influenza Type B (PCR) NEGATIVE (Negative) RSV RNA Qual (PCR) NEGATIVE (Negative) 03/21/21 03/21/21 03/21/21 Range/Units 19:50 20:03 20:03 WBC (4.8-10.8) X10*3/uL RBC (4.20-5.50) X10*6/uL Hgb (12.0-16.0) g/dl Hct (37-47) % MCV (80-98) fL MCH (27.0-33.0) pg MCHC (31.0-35.0) g/dl RDW (11.0-16.0) % Plt Count (160-400) X10*3/uL MPV (9.4-12.3) fL Immature Gran % (Auto) Neut % (Auto) Lymph % (Auto) [place] % (Auto) Eos % (Auto) Baso % (Auto) Lymph # (Auto) [place] # (Auto) Eos # (Auto) Baso # (Auto) Abs Immat Gran (auto) Absolute Neuts (auto) Absolute Nucleated RBC (0.0-0.012) X10*3/uL Nucleated RBC % (auto) (0.0-0.2) /100WBC Neutrophils % (Manual) (45-73) % Band Neutrophils % (3-5) % Lymphocytes % (Manual) (20-40) % Atypical Lymphs % (Man) (0-6) % Monocytes % (Manual) (2-11) % Eosinophils % (Manual) (0-4) % Basophils % (Manual) (0-1) % Metamyelocytes % % Myelocytes % % Promyelocytes % % Abs Neuts (Manual) (2.2-7.9) X10*3/uL Lymphocytes # (Manual) (0.6-4.8) X10*3/uL Atyp Lymphs # (Manual) x10*3/uL Monocytes # (Manual) (0.0-1.2) X10*3/uL Eosinophils # (Manual) (0.0-0.8) X10*3/UL Basophils # (Manual) (0.0-0.3) X10*3/uL Metamyelocytes # X10*3/uL Myelocytes # X10*/uL Promyelocytes # X10*3/uL Nucleated RBCs (0-0) /100WBC Platelet Estimate (NORMAL) Large Platelets Plt Morphology Comment RBC Morphology Polychromasia /OIF Macrocytosis /OIF Tear Drop Cells /OIF Acanthocytes (Spur) /OIF PT (9.9-13.0) SEC INR (0.9-1.1) APTT (24.1-38.0) SEC Sodium (135-145) mmol/L Potassium (3.3-5.1) mmol/L Chloride (96-108) mmol/L Carbon Dioxide (22-29) mmol/L Anion Gap (12-20) BUN (9-16) mg/dL Creatinine (0.5-1.4) mg/dL Estim Creat Clear Calc Estimated GFR Random Glucose (60-115) mg/dL Lactic Acid 4.8 H* (0.5-2.0) mmol/L Calcium (8.4-10.2) mg/dL Troponin I High Sens (<3.5-17.0) ng/L Urine Color YELLOW Urine Appearance CLEAR Urine pH 8.5 H (5.0-8.0) Ur Specific [place] 1.010 (1.005-1.025) Urine Protein 2+ H (NEG-TRACE) MG/DL Urine Glucose (UA) NEG (NEG) MG/DL Urine Ketones NEG (NEG) MG/DL Urine Blood NEG (NEG) Urine Nitrite NEG (NEG) Ur Leukocyte Esterase NEG (NEG) Urine RBC 0-2 (0) /HPF Urine WBC 0-2 (0-4) /HPF Ur Squamous Epith Cells TRACE /LPF Amorphous Sediment 2+ /LPF Urine Bacteria NONE /LPF Urine Opiates Screen POSITIVE H (Not Detect) Urine Fentanyl Screen Not Detected (Not Detect) Ur Barbiturates Screen Not Detected (Not Detect) Ur Phencyclidine Scrn Not Detected (Not Detect) Ur Amphetamines Screen Not Detected (Not Detect) U Benzodiazepines Scrn Not Detected (Not Detect) Urine Cocaine Screen Not Detected (Not Detect) U Marijuana (THC) Screen Not Detected (Not Detect) Ethyl Alcohol mg/dL Coronavirus (PCR) (Negative) Influenza Type A (PCR) (Negative) Influenza Type B (PCR) (Negative) RSV RNA Qual (PCR) (Negative) ECG Data Interpretation: Normal sinus rhythm. Ventricular rate 80. Pr interval 156. QRS 72. QTC 424. Negative stemi Critical Care Time Critical Care Time Critical Care Time: Yes Total Critical Care Time: 60 Attestation: Lumbar puncture performed. Patient given IV sedation with propofol. Antibiotic and antiviral started. Consent received by over the phone. Discussed case with Cardiology due to elevated troponin. Discharge Plan Discharge Clinical Impression: Acute alteration in mental status Patient Disposition: Admitted As Inpatient
[2021-03-21 20:03] LABS: INTERNATIONAL NORM RATIO 1.1 (0.9-1.1); Prothrombin Time 12.4 SEC (9.9-13.0)
[2021-03-21 20:05] LABS: Partial Thromboplastin Time 40.1 SEC (24.1-38.0)
[2021-03-21 20:07] LABS: Ethanol < 10 mg/dL
[2021-03-21] MEDS: 0.9 % Sodium Chloride 1,000 ML 999 ML IV ×2 (20:08→21:55)
[2021-03-21] MEDS: Haloperidol Lactate 5 MG/ML VIAL IM ×2 (20:09→22:21)
--- NOTE | 2021-03-21 20:12 | PC.NURSE ---
PATIENT IS ALERTED UNABLE TO GIVE HER NAME OR WHERE SHE IS OR THE DATE. PATIENT ABLE TO SAY SHE CAME HERE FOR A HEADACHE. SITTER IN PLACE WITH PATIENT CLIMBING TO THE END OF THE BED, REDIRECTED MULTIPLE TIMES. SKIN IS P,D,W. PATIENT SETTLNIG FOR A FEW MINUTES THEN UP AND FIGHTING STAFF AGAIN, WAS ABLE TO OBTAIN LABS AND URINE SAMPLE WITH HELP FROM STAFF MEMBERS. PRVIDER IS AWARE AWAITING RESULTS.
[2021-03-21 20:14] LABS: Appearance Urine CLEAR; Color Urine YELLOW; Glucose Urine UA NEG (NEG); Leukocyte Esterase Urine NEG (NEG); Nitrite Urine NEG (NEG); PH 8.5 (5.0-8.0); UACC Culture Trigger NO; Urine Blood NEG (NEG); Urine Ketones NEG (NEG); Urine Protein 2+ MG/DL (NEG-TRACE)
[2021-03-21 20:14] LABS: Lactic Acid 4.8 mmol/L (0.5-2.0)
[2021-03-21 20:22] LABS: RBC Urine 0-2 /HPF (0); Squamous Epithelial Cell Urine TRACE /LPF; WBC Urine 0-2 /HPF (0-4)
[2021-03-21 20:23] LABS: Amorphous Sediment Urine 2+ /LPF
[2021-03-21 20:30] LABS: Amphetamine Screen Urine Not Detected (Not Detect); Barbiturates, Urine Not Detected (Not Detect); Benzodiazepines Screen Urine Not Detected (Not Detect); Cannabinoid Screen Urine Not Detected (Not Detect); Cocaine Screen Urine Not Detected (Not Detect); Fentanyl, urine Not Detected (Not Detect); Opiate Screen Urine POSITIVE (Not Detect); Phencyclidine Screen Urine Not Detected (Not Detect)
[2021-03-21 20:33] LABS: Alanine Aminotransferase 33 U/L (0-31); Albumin Level 4.7 g/dL (3.5-5.0); Alkaline Phosphatase 190 U/L (39-117); Aspartate Amino Transferase 29 U/L (5-31); Bilirubin Direct 0.3 mg/dL (0.0-0.5); Bilirubin Total 0.8 mg/dL (0.0-1.0); Lipase 14 U/L (8-78); Total Protein 7.1 g/dL (6.5-8.0)
--- NOTE | 2021-03-21 20:40 | PC.NURSE ---
USHA VILLAGOMEZ AT BEDSIDE TO TALK WITH PATIENT ABOUT A LUMBAR PUNCTURE. PATIENT WAS ALERT AND ORIENTED, KNEW HER NAME, HER AND WHERE SHES WAS. PATIENT STATING UNDERSTANDING NEED FOR MORE BLOOD WORK, WHEN THIS RN AND TECH RETURNED TO GET BLOOD WORK PATIENT STARTING TO FIGHT, NO LONGER KNOWING WHERE SHE IS OR HER , DOES RESPOND TO HER NAME. YELLING OUT AGAIN SCREAMING FOR HELP, ATTEMPTING TO REORIENT PATIENT BUT UNSUCCESSFUL, PROVIDER CALLED TO BEDSIDE TO REEVALUATE PATIENT AGAIN.
[2021-03-21] MEDS: propofoL 200 MG/20 ML VIAL IVPUSH (21:10)
[2021-03-21 21:18] LABS: Lactic Acid 3.4 mmol/L (0.5-2.0)
[2021-03-21 21:32] LABS: Troponin-I High Sensitivity 62.7 ng/L (<3.5-17.0)
--- NOTE | 2021-03-21 21:35 | PC.NURSE ---
patient is more alert coming out of preocedural sedation, grabbing at staff and moving during lab draw. closer to pre procedural baseline
--- NOTE | 2021-03-21 21:40 | PC.NURSE ---
set up and assist geraldo casillas with patient lp
[2021-03-21 21:54] LABS: Reflex Lactate? Lactic Acid Added
--- NOTE | 2021-03-21 21:59 | ECG_ITS ---
Test Reason : NAUSEA, VOMITING Blood Pressure : / mmHG Vent. Rate : 080 BPM Atrial Rate : 080 BPM P-R Int : 156 ms QRS Dur : 072 ms QT Int : 368 ms P-R-T Axes : 024 015 027 degrees QTc Int : 424 ms Normal sinus rhythm Possible Inferior infarct (cited on or before 05-MAR-2018) Abnormal ECG When compared with ECG of 02-FEB-2020 05:39, HI interval has decreased Referred By: Erasmo Juarez Electronically Signed By:MANDIE JACOBSON
--- NOTE | 2021-03-21 21:59 | PC.NURSE ---
patient is at baseline now same level of consciousness as prior to procedure, fighting with staff. pulling off equipment, uncooperative
[2021-03-21] MEDS: cefTRIAXone sodium 1 GM in 0.9 % Sodium Chloride 50 ML IV (22:21)
--- NOTE | 2021-03-21 22:36 | PC.NURSE ---
after administration of haldol patient able to verbalize needs, asking for a drink of water, no distress noted, able to follow commands better and listen to instructions. speaking in full clear sentences. provider at bedside for reevaluation. [id number]
--- NOTE | 2021-03-21 22:39 | PC.NURSE ---
medicated to better enable patient to verbalize needs and patient is more oriented, able to state her name and follow commands after administration
[2021-03-21 22:43] LABS: Appearance CSF CLEAR; CSF Tube # 4; Color CSF COLORLESS; Red Blood Cell CSF 45 MM*3; White Blood Cell CSF 0 MM*3
[2021-03-21 22:47] LABS: Glucose CSF 64 mg/dL; Total Protein CSF 38.1 mg/dL (15-45)
[2021-03-21 22:55] LABS: CSF Appearance Clear, Colorless; CSF Tube # 2
[2021-03-21 23:01] LABS: Reflex Lactate? Lactic Acid Added
--- NOTE | 2021-03-21 23:08 | ED.GENADULT ---
HPI - General Adult General Chief complaint: General Medical Stated complaint: headache n/v chills Time Seen by Provider: 03/21/21 18:30 Source: patient and family Mode of arrival: ambulatory Limitations: no limitations Related Data Home Medications Medication Instructions Recorded Confirmed allopurinol 300 mg tablet 300 mg PO DAILY 04/20/20 03/21/21 aspirin 81 mg tablet,delayed 81 mg PO DAILY 04/20/20 03/21/21 release (Adult Aspirin Regimen) esomeprazole magnesium 20 mg 20 mg PO DAILY 04/20/20 03/21/21 capsule,delayed release melatonin 5 mg capsule 5 mg PO DAILY cap 04/20/20 03/21/21 multivitamin with minerals-folic 1 tab PO DAILY 04/20/20 03/21/21 acid 200 mcg chewable tablet (Adult Multivitamin Gummies) ruxolitinib 15 mg tablet (Jakafi) 15 mg PO BID 03/22/21 03/22/21 Previous Rx's Medication Instructions Recorded amlodipine 5 mg tablet 5 mg PO DAILY #90 tab 01/25/21 zolpidem 5 mg tablet (Ambien) 5 mg PO BEDTIME PRN 30 Days #30 tab 02/12/21 lorazepam 0.5 mg tablet 0.5 mg PO BEDTIME PRN 30 Days #30 03/18/21 tab doxycycline hyclate 100 mg tablet 100 mg PO Q12H #14 tab 03/23/21 Allergies Allergy/AdvReac Type Severity Reaction Status Date / Time Flu vaccine Allergy Unknown Whole arm Verified 03/21/21 18:10 redness/itchy PMFSH Past Medical History Medical History Anxiety Fracture of left side of mandible GERD (gastroesophageal reflux disease) Hypertension Hypertriglyceridemia Mandibular fracture Migraine Myeloproliferative disorder SBO (small bowel obstruction) Surgical History History of arthroscopy of left knee History of colonoscopy History of esophagogastroduodenoscopy (EGD) History of reduction of closed fracture History of total abdominal hysterectomy and bilateral salpingo-oophorectomy Family History Family History Father Lung cancer Emphysema lung Mother History of hip replacement History of knee replacement Brother Thyroid nodule Social History Social History Household Members: Spouse Housing: House Do you presently have visiting nurse or other home services: No Alcohol intake: unknown Patient Tobacco Use Status: Never used Tobacco e-Cigarette/Vaping Use: Never Used Second Hand Smoke Exposure: No service: No Current occupational status: retired Physical Exam Vital Signs: Vital Signs: Last Vital Signs Temp 98.6 F 03/23/21 11:28 Pulse 74 03/23/21 11:28 Resp 18 03/23/21 11:28 BP 155/67 H 03/23/21 11:28 Pulse Ox 98 03/23/21 11:28 Oxygen Flow Rate 5 03/21/21 22:08 Body Mass Index 22.8 Medical Decision Making Lab Data Result diagrams: 03/22/21 05:14 03/22/21 05:14 Labs: Lab Results 03/21/21 03/21/21 03/21/21 Range/Units 18:44 18:44 18:44 WBC 11.4 H (4.8-10.8) X10*3/uL RBC 3.74 L (4.20-5.50) X10*6/uL Hgb 11.5 L (12.0-16.0) g/dl Hct 34.7 L (37-47) % MCV 92.8 (80-98) fL MCH 30.7 (27.0-33.0) pg MCHC 33.1 (31.0-35.0) g/dl RDW 15.5 (11.0-16.0) % Plt Count 187 (160-400) X10*3/uL MPV 9.6 (9.4-12.3) fL Immature Gran % (Auto) Cancelled Neut % (Auto) Cancelled Lymph % (Auto) Cancelled Emery % (Auto) Cancelled Eos % (Auto) Cancelled Baso % (Auto) Cancelled Lymph # (Auto) Cancelled Emery # (Auto) Cancelled Eos # (Auto) Cancelled Baso # (Auto) Cancelled Abs Immat Gran (auto) Cancelled Absolute Neuts (auto) Cancelled Absolute Nucleated RBC 0.330 H (0.0-0.012) X10*3/uL Nucleated RBC % (auto) 2.9 H (0.0-0.2) /100WBC Neutrophils % (Manual) 50 (45-73) % Band Neutrophils % 14 H (3-5) % Lymphocytes % (Manual) 8 L (20-40) % Atypical Lymphs % (Man) 1 (0-6) % Monocytes % (Manual) 5 (2-11) % Eosinophils % (Manual) 5 H (0-4) % Basophils % (Manual) 12 H (0-1) % Metamyelocytes % 2 % Myelocytes % 1 % Promyelocytes % 2 % Abs Neuts (Manual) 7.3 (2.2-7.9) X10*3/uL Lymphocytes # (Manual) 0.9 (0.6-4.8) X10*3/uL Atyp Lymphs # (Manual) 0.1 x10*3/uL Monocytes # (Manual) 0.6 (0.0-1.2) X10*3/uL Eosinophils # (Manual) 0.6 (0.0-0.8) X10*3/UL Basophils # (Manual) 1.4 H (0.0-0.3) X10*3/uL Metamyelocytes # 0.2 X10*3/uL Myelocytes # 0.1 X10*/uL Promyelocytes # 0.2 X10*3/uL Nucleated RBCs 1 H (0-0) /100WBC Platelet Estimate SLIGHTLY DECREASED (NORMAL) Large Platelets PRESENT Plt Morphology Comment AGRANULAR RBC Morphology NOTED Polychromasia 2+ (3-5) /OIF Macrocytosis 1+ (5-14) /OIF Tear Drop Cells 2+ (3-5) /OIF Acanthocytes (Spur) 1+ (0-2) /OIF PT (9.9-13.0) SEC INR (0.9-1.1) APTT (24.1-38.0) SEC Sodium 135 (135-145) mmol/L Potassium 4.3 (3.3-5.1) mmol/L Chloride 98 (96-108) mmol/L Carbon Dioxide 25 (22-29) mmol/L Anion Gap 16 (12-20) BUN 15 (9-16) mg/dL Creatinine 1.09 (0.5-1.4) mg/dL Estim Creat Clear Calc 41.7 Estimated GFR 49 Random Glucose 111 (60-115) mg/dL Lactic Acid (0.5-2.0) mmol/L Lactic Acid Fup @ 2Hr (0.5-2.0) mmol/L Calcium 10.2 D (8.4-10.2) mg/dL Total Bilirubin 0.8 (0.0-1.0) mg/dL Direct Bilirubin 0.3 (0.0-0.5) mg/dL AST 29 D (5-31) U/L ALT 33 H (0-31) U/L Alkaline Phosphatase 190 H D (39-117) U/L Ammonia (13-55) umol/L Troponin I High Sens 28.5 H* (<3.5-17.0) ng/L Total Protein 7.1 (6.5-8.0) g/dL Albumin 4.7 (3.5-5.0) g/dL Lipase 14 (8-78) U/L Urine Color Urine Appearance Urine pH (5.0-8.0) Ur Specific [place] (1.005-1.025) Urine Protein (NEG-TRACE) MG/DL Urine Glucose (UA) (NEG) MG/DL Urine Ketones (NEG) MG/DL Urine Blood (NEG) Urine Nitrite (NEG) Ur Leukocyte Esterase (NEG) Urine RBC (0) /HPF Urine WBC (0-4) /HPF Ur Squamous Epith Cells /LPF Amorphous Sediment /LPF Urine Bacteria /LPF CSF Tube Number CSF Volume ML CSF Appearance CSF Color CSF WBC MM*3 CSF RBC MM*3 CSF Appearance (b) CSF Glucose mg/dL CSF Total Protein (15-45) mg/dL Urine Opiates Screen (Not Detect) Urine Fentanyl Screen (Not Detect) Ur Barbiturates Screen (Not Detect) Ur Phencyclidine Scrn (Not Detect) Ur Amphetamines Screen (Not Detect) U Benzodiazepines Scrn (Not Detect) Urine Cocaine Screen (Not Detect) U Marijuana (THC) Screen (Not Detect) Ethyl Alcohol mg/dL Respiratory Panel [place] Adenovirus (Rapid PCR) (Not Detect.) B.pert (TEM-PCR) (Not Detect.) B.parapertussis DNA PCR (Not Detect.) C. pneumoniae DNA (PCR) (Not Detect.) Coronavirus (PCR) (Negative) Coronavirus OC43 (PCR) (Not Detect.) Coronavirus HKU1 (PCR) (Not Detect.) Coronavirus 229E (PCR) (Not Detect.) Coronavirus NL63 (PCR) (Not Detect.) Human Metapneumovir PCR (Not Detect.) Influenza A (RT-PCR) (Not Detect.) Influenza Type A (PCR) (Negative) Influenza B (RT-PCR) (Not Detect.) Influenza Type B (PCR) (Negative) M. pneumoniae (PCR) (Not Detect.) Parainfluenza 1 (PCR) (Not Detect.) Parainfluenza 2 (PCR) (Not Detect.) Parainfluenza 3 (PCR) (Not Detect.) Parainfluenza 4 (PCR) (Not Detect.) RSV (PCR) (Not Detect.) RSV RNA Qual (PCR) (Negative) Entero/Rhino (PCR) (Not Detect.) SARS-CoV-2 RNA (RT-PCR) (Not Detect.) 03/21/21 03/21/21 03/21/21 Range/Units 18:45 18:45 19:48 WBC (4.8-10.8) X10*3/uL RBC (4.20-5.50) X10*6/uL Hgb (12.0-16.0) g/dl Hct (37-47) % MCV (80-98) fL MCH (27.0-33.0) pg MCHC (31.0-35.0) g/dl RDW (11.0-16.0) % Plt Count (160-400) X10*3/uL MPV (9.4-12.3) fL Immature Gran % (Auto) Neut % (Auto) Lymph % (Auto) Emery % (Auto) Eos % (Auto) Baso % (Auto) Lymph # (Auto) [place]y # (Auto) Eos # (Auto) Baso # (Auto) Abs Immat Gran (auto) Absolute Neuts (auto) Absolute Nucleated RBC (0.0-0.012) X10*3/uL Nucleated RBC % (auto) (0.0-0.2) /100WBC Neutrophils % (Manual) (45-73) % Band Neutrophils % (3-5) % Lymphocytes % (Manual) (20-40) % Atypical Lymphs % (Man) (0-6) % Monocytes % (Manual) (2-11) % Eosinophils % (Manual) (0-4) % Basophils % (Manual) (0-1) % Metamyelocytes % % Myelocytes % % Promyelocytes % % Abs Neuts (Manual) (2.2-7.9) X10*3/uL Lymphocytes # (Manual) (0.6-4.8) X10*3/uL Atyp Lymphs # (Manual) x10*3/uL Monocytes # (Manual) (0.0-1.2) X10*3/uL Eosinophils # (Manual) (0.0-0.8) X10*3/UL Basophils # (Manual) (0.0-0.3) X10*3/uL Metamyelocytes # X10*3/uL Myelocytes # X10*/uL Promyelocytes # X10*3/uL Nucleated RBCs (0-0) /100WBC Platelet Estimate (NORMAL) Large Platelets Plt Morphology Comment RBC Morphology Polychromasia /OIF Macrocytosis /OIF Tear Drop Cells /OIF Acanthocytes (Spur) /OIF PT (9.9-13.0) SEC INR (0.9-1.1) APTT (24.1-38.0) SEC Sodium (135-145) mmol/L Potassium (3.3-5.1) mmol/L Chloride (96-108) mmol/L Carbon Dioxide (22-29) mmol/L Anion Gap (12-20) BUN (9-16) mg/dL Creatinine (0.5-1.4) mg/dL Estim Creat Clear Calc Estimated GFR Random Glucose (60-115) mg/dL Lactic Acid (0.5-2.0) mmol/L Lactic Acid Fup @ 2Hr (0.5-2.0) mmol/L Calcium (8.4-10.2) mg/dL Total Bilirubin (0.0-1.0) mg/dL Direct Bilirubin (0.0-0.5) mg/dL AST (5-31) U/L ALT (0-31) U/L Alkaline Phosphatase (39-117) U/L Ammonia (13-55) umol/L Troponin I High Sens (<3.5-17.0) ng/L Total Protein (6.5-8.0) g/dL Albumin (3.5-5.0) g/dL Lipase (8-78) U/L Urine Color Urine Appearance Urine pH (5.0-8.0) Ur Specific [place] (1.005-1.025) Urine Protein (NEG-TRACE) MG/DL Urine Glucose (UA) (NEG) MG/DL Urine Ketones (NEG) MG/DL Urine Blood (NEG) Urine Nitrite (NEG) Ur Leukocyte Esterase (NEG) Urine RBC (0) /HPF Urine WBC (0-4) /HPF Ur Squamous Epith Cells /LPF Amorphous Sediment /LPF Urine Bacteria /LPF CSF Tube Number CSF Volume ML CSF Appearance CSF Color CSF WBC MM*3 CSF RBC MM*3 CSF Appearance (b) CSF Glucose mg/dL CSF Total Protein (15-45) mg/dL Urine Opiates Screen (Not Detect) Urine Fentanyl Screen (Not Detect) Ur Barbiturates Screen (Not Detect) Ur Phencyclidine Scrn (Not Detect) Ur Amphetamines Screen (Not Detect) U Benzodiazepines Scrn (Not Detect) Urine Cocaine Screen (Not Detect) U Marijuana (THC) Screen (Not Detect) Ethyl Alcohol < 10 mg/dL Respiratory Panel [place] See Note Adenovirus (Rapid PCR) Not Detected (Not Detect.) B.pert (TEM-PCR) Not Detected (Not Detect.) B.parapertussis DNA PCR Not Detected (Not Detect.) C. pneumoniae DNA (PCR) Not Detected (Not Detect.) Coronavirus (PCR) NEGATIVE (Negative) Coronavirus OC43 (PCR) Not Detected (Not Detect.) Coronavirus HKU1 (PCR) Not Detected (Not Detect.) Coronavirus 229E (PCR) Not Detected (Not Detect.) Coronavirus NL63 (PCR) Not Detected (Not Detect.) Human Metapneumovir PCR Not Detected (Not Detect.) Influenza A (RT-PCR) Not Detected (Not Detect.) Influenza Type A (PCR) NEGATIVE (Negative) Influenza B (RT-PCR) Not Detected (Not Detect.) Influenza Type B (PCR) NEGATIVE (Negative) M. pneumoniae (PCR) Not Detected (Not Detect.) Parainfluenza 1 (PCR) Not Detected (Not Detect.) Parainfluenza 2 (PCR) Not Detected (Not Detect.) Parainfluenza 3 (PCR) Not Detected (Not Detect.) Parainfluenza 4 (PCR) Not Detected (Not Detect.) RSV (PCR) Not Detected (Not Detect.) RSV RNA Qual (PCR) NEGATIVE (Negative) Entero/Rhino (PCR) Not Detected (Not Detect.) SARS-CoV-2 RNA (RT-PCR) Not Detected (Not Detect.) 03/21/21 03/21/21 03/21/21 Range/Units 19:48 19:50 20:03 WBC (4.8-10.8) X10*3/uL RBC (4.20-5.50) X10*6/uL Hgb (12.0-16.0) g/dl Hct (37-47) % MCV (80-98) fL MCH (27.0-33.0) pg MCHC (31.0-35.0) g/dl RDW (11.0-16.0) % Plt Count (160-400) X10*3/uL MPV (9.4-12.3) fL Immature Gran % (Auto) Neut % (Auto) Lymph % (Auto) Emery % (Auto) Eos % (Auto) Baso % (Auto) Lymph # (Auto) Emery # (Auto) Eos # (Auto) Baso # (Auto) Abs Immat Gran (auto) Absolute Neuts (auto) Absolute Nucleated RBC (0.0-0.012) X10*3/uL Nucleated RBC % (auto) (0.0-0.2) /100WBC Neutrophils % (Manual) (45-73) % Band Neutrophils % (3-5) % Lymphocytes % (Manual) (20-40) % Atypical Lymphs % (Man) (0-6) % Monocytes % (Manual) (2-11) % Eosinophils % (Manual) (0-4) % Basophils % (Manual) (0-1) % Metamyelocytes % % Myelocytes % % Promyelocytes % % Abs Neuts (Manual) (2.2-7.9) X10*3/uL Lymphocytes # (Manual) (0.6-4.8) X10*3/uL Atyp Lymphs # (Manual) x10*3/uL Monocytes # (Manual) (0.0-1.2) X10*3/uL Eosinophils # (Manual) (0.0-0.8) X10*3/UL Basophils # (Manual) (0.0-0.3) X10*3/uL Metamyelocytes # X10*3/uL Myelocytes # X10*/uL Promyelocytes # X10*3/uL Nucleated RBCs (0-0) /100WBC Platelet Estimate (NORMAL) Large Platelets Plt Morphology Comment RBC Morphology Polychromasia /OIF Macrocytosis /OIF Tear Drop Cells /OIF Acanthocytes (Spur) /OIF PT 12.4 (9.9-13.0) SEC INR 1.1 (0.9-1.1) APTT 40.1 H (24.1-38.0) SEC Sodium (135-145) mmol/L Potassium (3.3-5.1) mmol/L Chloride (96-108) mmol/L Carbon Dioxide (22-29) mmol/L Anion Gap (12-20) BUN (9-16) mg/dL Creatinine (0.5-1.4) mg/dL Estim Creat Clear Calc Estimated GFR Random Glucose (60-115) mg/dL Lactic Acid 4.8 H* (0.5-2.0) mmol/L Lactic Acid Fup @ 2Hr (0.5-2.0) mmol/L Calcium (8.4-10.2) mg/dL Total Bilirubin (0.0-1.0) mg/dL Direct Bilirubin (0.0-0.5) mg/dL AST (5-31) U/L ALT (0-31) U/L Alkaline Phosphatase (39-117) U/L Ammonia (13-55) umol/L Troponin I High Sens (<3.5-17.0) ng/L Total Protein (6.5-8.0) g/dL Albumin (3.5-5.0) g/dL Lipase (8-78) U/L Urine Color YELLOW Urine Appearance CLEAR Urine pH 8.5 H (5.0-8.0) Ur Specific [place] 1.010 (1.005-1.025) Urine Protein 2+ H (NEG-TRACE) MG/DL Urine Glucose (UA) NEG (NEG) MG/DL Urine Ketones NEG (NEG) MG/DL Urine Blood NEG (NEG) Urine Nitrite NEG (NEG) Ur Leukocyte Esterase NEG (NEG) Urine RBC 0-2 (0) /HPF Urine WBC 0-2 (0-4) /HPF Ur Squamous Epith Cells TRACE /LPF Amorphous Sediment 2+ /LPF Urine Bacteria NONE /LPF CSF Tube Number CSF Volume ML CSF Appearance CSF Color CSF WBC MM*3 CSF RBC MM*3 CSF Appearance (b) CSF Glucose mg/dL CSF Total Protein (15-45) mg/dL Urine Opiates Screen (Not Detect) Urine Fentanyl Screen (Not Detect) Ur Barbiturates Screen (Not Detect) Ur Phencyclidine Scrn (Not Detect) Ur Amphetamines Screen (Not Detect) U Benzodiazepines Scrn (Not Detect) Urine Cocaine Screen (Not Detect) U Marijuana (THC) Screen (Not Detect) Ethyl Alcohol mg/dL Respiratory Panel [place] Adenovirus (Rapid PCR) (Not Detect.) B.pert (TEM-PCR) (Not Detect.) B.parapertussis DNA PCR (Not Detect.) C. pneumoniae DNA (PCR) (Not Detect.) Coronavirus (PCR) (Negative) Coronavirus OC43 (PCR) (Not Detect.) Coronavirus HKU1 (PCR) (Not Detect.) Coronavirus 229E (PCR) (Not Detect.) Coronavirus NL63 (PCR) (Not Detect.) Human Metapneumovir PCR (Not Detect.) Influenza A (RT-PCR) (Not Detect.) Influenza Type A (PCR) (Negative) Influenza B (RT-PCR) (Not Detect.) Influenza Type B (PCR) (Negative) M. pneumoniae (PCR) (Not Detect.) Parainfluenza 1 (PCR) (Not Detect.) Parainfluenza 2 (PCR) (Not Detect.) Parainfluenza 3 (PCR) (Not Detect.) Parainfluenza 4 (PCR) (Not Detect.) RSV (PCR) (Not Detect.) RSV RNA Qual (PCR) (Negative) Entero/Rhino (PCR) (Not Detect.) SARS-CoV-2 RNA (RT-PCR) (Not Detect.) 03/21/21 03/21/21 03/21/21 Range/Units 20:03 20:52 20:57 WBC (4.8-10.8) X10*3/uL RBC (4.20-5.50) X10*6/uL Hgb (12.0-16.0) g/dl Hct (37-47) % MCV (80-98) fL MCH (27.0-33.0) pg MCHC (31.0-35.0) g/dl RDW (11.0-16.0) % Plt Count (160-400) X10*3/uL MPV (9.4-12.3) fL Immature Gran % (Auto) Neut % (Auto) Lymph % (Auto) Emery % (Auto) Eos % (Auto) Baso % (Auto) Lymph # (Auto) [place]y # (Auto) Eos # (Auto) Baso # (Auto) Abs Immat Gran (auto) Absolute Neuts (auto) Absolute Nucleated RBC (0.0-0.012) X10*3/uL Nucleated RBC % (auto) (0.0-0.2) /100WBC Neutrophils % (Manual) (45-73) % Band Neutrophils % (3-5) % Lymphocytes % (Manual) (20-40) % Atypical Lymphs % (Man) (0-6) % Monocytes % (Manual) (2-11) % Eosinophils % (Manual) (0-4) % Basophils % (Manual) (0-1) % Metamyelocytes % % Myelocytes % % Promyelocytes % % Abs Neuts (Manual) (2.2-7.9) X10*3/uL Lymphocytes # (Manual) (0.6-4.8) X10*3/uL Atyp Lymphs # (Manual) x10*3/uL Monocytes # (Manual) (0.0-1.2) X10*3/uL Eosinophils # (Manual) (0.0-0.8) X10*3/UL Basophils # (Manual) (0.0-0.3) X10*3/uL Metamyelocytes # X10*3/uL Myelocytes # X10*/uL Promyelocytes # X10*3/uL Nucleated RBCs (0-0) /100WBC Platelet Estimate (NORMAL) Large Platelets Plt Morphology Comment RBC Morphology Polychromasia /OIF Macrocytosis /OIF Tear Drop Cells /OIF Acanthocytes (Spur) /OIF PT (9.9-13.0) SEC INR (0.9-1.1) APTT (24.1-38.0) SEC Sodium (135-145) mmol/L Potassium (3.3-5.1) mmol/L Chloride (96-108) mmol/L Carbon Dioxide (22-29) mmol/L Anion Gap (12-20) BUN (9-16) mg/dL Creatinine (0.5-1.4) mg/dL Estim Creat Clear Calc Estimated GFR Random Glucose (60-115) mg/dL Lactic Acid 3.4 H* (0.5-2.0) mmol/L Lactic Acid Fup @ 2Hr (0.5-2.0) mmol/L Calcium (8.4-10.2) mg/dL Total Bilirubin (0.0-1.0) mg/dL Direct Bilirubin (0.0-0.5) mg/dL AST (5-31) U/L ALT (0-31) U/L Alkaline Phosphatase (39-117) U/L Ammonia (13-55) umol/L Troponin I High Sens 62.7 H* D (<3.5-17.0) ng/L Total Protein (6.5-8.0) g/dL Albumin (3.5-5.0) g/dL Lipase (8-78) U/L Urine Color Urine Appearance Urine pH (5.0-8.0) Ur Specific [place] (1.005-1.025) Urine Protein (NEG-TRACE) MG/DL Urine Glucose (UA) (NEG) MG/DL Urine Ketones (NEG) MG/DL Urine Blood (NEG) Urine Nitrite (NEG) Ur Leukocyte Esterase (NEG) Urine RBC (0) /HPF Urine WBC (0-4) /HPF Ur Squamous Epith Cells /LPF Amorphous Sediment /LPF Urine Bacteria /LPF CSF Tube Number CSF Volume ML CSF Appearance CSF Color CSF WBC MM*3 CSF RBC MM*3 CSF Appearance (b) CSF Glucose mg/dL CSF Total Protein (15-45) mg/dL Urine Opiates Screen POSITIVE H (Not Detect) Urine Fentanyl Screen Not Detected (Not Detect) Ur Barbiturates Screen Not Detected (Not Detect) Ur Phencyclidine Scrn Not Detected (Not Detect) Ur Amphetamines Screen Not Detected (Not Detect) U Benzodiazepines Scrn Not Detected (Not Detect) Urine Cocaine Screen Not Detected (Not Detect) U Marijuana (THC) Screen Not Detected (Not Detect) Ethyl Alcohol mg/dL Respiratory Panel [place] Adenovirus (Rapid PCR) (Not Detect.) B.pert (TEM-PCR) (Not Detect.) B.parapertussis DNA PCR (Not Detect.) C. pneumoniae DNA (PCR) (Not Detect.) Coronavirus (PCR) (Negative) Coronavirus OC43 (PCR) (Not Detect.) Coronavirus HKU1 (PCR) (Not Detect.) Coronavirus 229E (PCR) (Not Detect.) Coronavirus NL63 (PCR) (Not Detect.) Human Metapneumovir PCR (Not Detect.) Influenza A (RT-PCR) (Not Detect.) Influenza Type A (PCR) (Negative) Influenza B (RT-PCR) (Not Detect.) Influenza Type B (PCR) (Negative) M. pneumoniae (PCR) (Not Detect.) Parainfluenza 1 (PCR) (Not Detect.) Parainfluenza 2 (PCR) (Not Detect.) Parainfluenza 3 (PCR) (Not Detect.) Parainfluenza 4 (PCR) (Not Detect.) RSV (PCR) (Not Detect.) RSV RNA Qual (PCR) (Negative) Entero/Rhino (PCR) (Not Detect.) SARS-CoV-2 RNA (RT-PCR) (Not Detect.) 03/21/21 03/21/21 03/21/21 Range/Units 21:33 21:33 21:33 WBC (4.8-10.8) X10*3/uL RBC (4.20-5.50) X10*6/uL Hgb (12.0-16.0) g/dl Hct (37-47) % MCV (80-98) fL MCH (27.0-33.0) pg MCHC (31.0-35.0) g/dl RDW (11.0-16.0) % Plt Count (160-400) X10*3/uL MPV (9.4-12.3) fL Immature Gran % (Auto) Neut % (Auto) Lymph % (Auto) [place]y % (Auto) Eos % (Auto) Baso % (Auto) Lymph # (Auto) [place] # (Auto) Eos # (Auto) Baso # (Auto) Abs Immat Gran (auto) Absolute Neuts (auto) Absolute Nucleated RBC (0.0-0.012) X10*3/uL Nucleated RBC % (auto) (0.0-0.2) /100WBC Neutrophils % (Manual) (45-73) % Band Neutrophils % (3-5) % Lymphocytes % (Manual) (20-40) % Atypical Lymphs % (Man) (0-6) % Monocytes % (Manual) (2-11) % Eosinophils % (Manual) (0-4) % Basophils % (Manual) (0-1) % Metamyelocytes % % Myelocytes % % Promyelocytes % % Abs Neuts (Manual) (2.2-7.9) X10*3/uL Lymphocytes # (Manual) (0.6-4.8) X10*3/uL Atyp Lymphs # (Manual) x10*3/uL Monocytes # (Manual) (0.0-1.2) X10*3/uL Eosinophils # (Manual) (0.0-0.8) X10*3/UL Basophils # (Manual) (0.0-0.3) X10*3/uL Metamyelocytes # X10*3/uL Myelocytes # X10*/uL Promyelocytes # X10*3/uL Nucleated RBCs (0-0) /100WBC Platelet Estimate (NORMAL) Large Platelets Plt Morphology Comment RBC Morphology Polychromasia /OIF Macrocytosis /OIF Tear Drop Cells /OIF Acanthocytes (Spur) /OIF PT (9.9-13.0) SEC INR (0.9-1.1) APTT (24.1-38.0) SEC Sodium (135-145) mmol/L Potassium (3.3-5.1) mmol/L Chloride (96-108) mmol/L Carbon Dioxide (22-29) mmol/L Anion Gap (12-20) BUN (9-16) mg/dL Creatinine (0.5-1.4) mg/dL Estim Creat Clear Calc Estimated GFR Random Glucose (60-115) mg/dL Lactic Acid (0.5-2.0) mmol/L Lactic Acid Fup @ 2Hr (0.5-2.0) mmol/L Calcium (8.4-10.2) mg/dL Total Bilirubin (0.0-1.0) mg/dL Direct Bilirubin (0.0-0.5) mg/dL AST (5-31) U/L ALT (0-31) U/L Alkaline Phosphatase (39-117) U/L Ammonia 48 (13-55) umol/L Troponin I High Sens (<3.5-17.0) ng/L Total Protein (6.5-8.0) g/dL Albumin (3.5-5.0) g/dL Lipase (8-78) U/L Urine Color Urine Appearance Urine pH (5.0-8.0) Ur Specific [place] (1.005-1.025) Urine Protein (NEG-TRACE) MG/DL Urine Glucose (UA) (NEG) MG/DL Urine Ketones (NEG) MG/DL Urine Blood (NEG) Urine Nitrite (NEG) Ur Leukocyte Esterase (NEG) Urine RBC (0) /HPF Urine WBC (0-4) /HPF Ur Squamous Epith Cells /LPF Amorphous Sediment /LPF Urine Bacteria /LPF CSF Tube Number 2 4 CSF Volume 2.0 ML CSF Appearance CLEAR CSF Color COLORLESS CSF WBC 0 MM*3 CSF RBC 45 MM*3 CSF Appearance (b) Clear, Colorless CSF Glucose 64 mg/dL CSF Total Protein 38.1 (15-45) mg/dL Urine Opiates Screen (Not Detect) Urine Fentanyl Screen (Not Detect) Ur Barbiturates Screen (Not Detect) Ur Phencyclidine Scrn (Not Detect) Ur Amphetamines Screen (Not Detect) U Benzodiazepines Scrn (Not Detect) Urine Cocaine Screen (Not Detect) U Marijuana (THC) Screen (Not Detect) Ethyl Alcohol mg/dL Respiratory Panel [place] Adenovirus (Rapid PCR) (Not Detect.) B.pert (TEM-PCR) (Not Detect.) B.parapertussis DNA PCR (Not Detect.) C. pneumoniae DNA (PCR) (Not Detect.) Coronavirus (PCR) (Negative) Coronavirus OC43 (PCR) (Not Detect.) Coronavirus HKU1 (PCR) (Not Detect.) Coronavirus 229E (PCR) (Not Detect.) Coronavirus NL63 (PCR) (Not Detect.) Human Metapneumovir PCR (Not Detect.) Influenza A (RT-PCR) (Not Detect.) Influenza Type A (PCR) (Negative) Influenza B (RT-PCR) (Not Detect.) Influenza Type B (PCR) (Negative) M. pneumoniae (PCR) (Not Detect.) Parainfluenza 1 (PCR) (Not Detect.) Parainfluenza 2 (PCR) (Not Detect.) Parainfluenza 3 (PCR) (Not Detect.) Parainfluenza 4 (PCR) (Not Detect.) RSV (PCR) (Not Detect.) RSV RNA Qual (PCR) (Negative) Entero/Rhino (PCR) (Not Detect.) SARS-CoV-2 RNA (RT-PCR) (Not Detect.) 03/21/21 Range/Units 22:33 WBC (4.8-10.8) X10*3/uL RBC (4.20-5.50) X10*6/uL Hgb (12.0-16.0) g/dl Hct (37-47) % MCV (80-98) fL MCH (27.0-33.0) pg MCHC (31.0-35.0) g/dl RDW (11.0-16.0) % Plt Count (160-400) X10*3/uL MPV (9.4-12.3) fL Immature Gran % (Auto) Neut % (Auto) Lymph % (Auto) [place] % (Auto) Eos % (Auto) Baso % (Auto) Lymph # (Auto) [place] # (Auto) Eos # (Auto) Baso # (Auto) Abs Immat Gran (auto) Absolute Neuts (auto) Absolute Nucleated RBC (0.0-0.012) X10*3/uL Nucleated RBC % (auto) (0.0-0.2) /100WBC Neutrophils % (Manual) (45-73) % Band Neutrophils % (3-5) % Lymphocytes % (Manual) (20-40) % Atypical Lymphs % (Man) (0-6) % Monocytes % (Manual) (2-11) % Eosinophils % (Manual) (0-4) % Basophils % (Manual) (0-1) % Metamyelocytes % % Myelocytes % % Promyelocytes % % Abs Neuts (Manual) (2.2-7.9) X10*3/uL Lymphocytes # (Manual) (0.6-4.8) X10*3/uL Atyp Lymphs # (Manual) x10*3/uL Monocytes # (Manual) (0.0-1.2) X10*3/uL Eosinophils # (Manual) (0.0-0.8) X10*3/UL Basophils # (Manual) (0.0-0.3) X10*3/uL Metamyelocytes # X10*3/uL Myelocytes # X10*/uL Promyelocytes # X10*3/uL Nucleated RBCs (0-0) /100WBC Platelet Estimate (NORMAL) Large Platelets Plt Morphology Comment RBC Morphology Polychromasia /OIF Macrocytosis /OIF Tear Drop Cells /OIF Acanthocytes (Spur) /OIF PT (9.9-13.0) SEC INR (0.9-1.1) APTT (24.1-38.0) SEC Sodium (135-145) mmol/L Potassium (3.3-5.1) mmol/L Chloride (96-108) mmol/L Carbon Dioxide (22-29) mmol/L Anion Gap (12-20) BUN (9-16) mg/dL Creatinine (0.5-1.4) mg/dL Estim Creat Clear Calc Estimated GFR Random Glucose (60-115) mg/dL Lactic Acid (0.5-2.0) mmol/L Lactic Acid Fup @ 2Hr 2.0 (0.5-2.0) mmol/L Calcium (8.4-10.2) mg/dL Total Bilirubin (0.0-1.0) mg/dL Direct Bilirubin (0.0-0.5) mg/dL AST (5-31) U/L ALT (0-31) U/L Alkaline Phosphatase (39-117) U/L Ammonia (13-55) umol/L Troponin I High Sens (<3.5-17.0) ng/L Total Protein (6.5-8.0) g/dL Albumin (3.5-5.0) g/dL Lipase (8-78) U/L Urine Color Urine Appearance Urine pH (5.0-8.0) Ur Specific [place] (1.005-1.025) Urine Protein (NEG-TRACE) MG/DL Urine Glucose (UA) (NEG) MG/DL Urine Ketones (NEG) MG/DL Urine Blood (NEG) Urine Nitrite (NEG) Ur Leukocyte Esterase (NEG) Urine RBC (0) /HPF Urine WBC (0-4) /HPF Ur Squamous Epith Cells /LPF Amorphous Sediment /LPF Urine Bacteria /LPF CSF Tube Number CSF Volume ML CSF Appearance CSF Color CSF WBC MM*3 CSF RBC MM*3 CSF Appearance (b) CSF Glucose mg/dL CSF Total Protein (15-45) mg/dL Urine Opiates Screen (Not Detect) Urine Fentanyl Screen (Not Detect) Ur Barbiturates Screen (Not Detect) Ur Phencyclidine Scrn (Not Detect) Ur Amphetamines Screen (Not Detect) U Benzodiazepines Scrn (Not Detect) Urine Cocaine Screen (Not Detect) U Marijuana (THC) Screen (Not Detect) Ethyl Alcohol mg/dL Respiratory Panel [place] Adenovirus (Rapid PCR) (Not Detect.) B.pert (TEM-PCR) (Not Detect.) B.parapertussis DNA PCR (Not Detect.) C. pneumoniae DNA (PCR) (Not Detect.) Coronavirus (PCR) (Negative) Coronavirus OC43 (PCR) (Not Detect.) Coronavirus HKU1 (PCR) (Not Detect.) Coronavirus 229E (PCR) (Not Detect.) Coronavirus NL63 (PCR) (Not Detect.) Human Metapneumovir PCR (Not Detect.) Influenza A (RT-PCR) (Not Detect.) Influenza Type A (PCR) (Negative) Influenza B (RT-PCR) (Not Detect.) Influenza Type B (PCR) (Negative) M. pneumoniae (PCR) (Not Detect.) Parainfluenza 1 (PCR) (Not Detect.) Parainfluenza 2 (PCR) (Not Detect.) Parainfluenza 3 (PCR) (Not Detect.) Parainfluenza 4 (PCR) (Not Detect.) RSV (PCR) (Not Detect.) RSV RNA Qual (PCR) (Negative) Entero/Rhino (PCR) (Not Detect.) SARS-CoV-2 RNA (RT-PCR) (Not Detect.) Discharge Plan Discharge Clinical Impression: Acute alteration in mental status Patient Disposition: Admitted As Inpatient Interventions: Admission Worksheet (ED) Last Done: 03/22/21 01:43 Discharge Date/Time: 03/22/21 01:44
--- NOTE | 2021-03-21 23:12 | PM.IMHP ---
History of Present Illness Date of Service: 03/21/21 Chief Complaint: marysol, This is a 75-year-old female with a past medical history of, GERD, hypertension, hyperlipidemia, migraine headaches and myeloproliferative disorder who is came into the hospital with complaints of headache, and chills. On my interview of the patient she is completely delirious, not directable, does not answer questions appropriately. She is awake and alert and oriented to self but not place or time. She is completely naked, refusing to put on any clothes, constantly trying to get out of bed. spoke to the over the phone, reports that patient gets migraine headache drinks regularly, she experienced a migraine headache this morning, the headache was persistent all day and therefore decided to come to the hospital. Apparently patient was also complaining of chills but no other symptoms. When asked about her agitation confusion and delirium patient's reports that this is completely new and she does not experience this but at home at nighttime. He also reports that she is under extreme levels of stress as both her son and her daughter have been recently sick with various health issues, and she has had difficulty sleeping and not taking care of herself. I am unable to review systems as patient is not answering questions appropriately On arrival to the ED patient's vitals are significant for a temp of 99.9?, heart rate of 111, respiratory rate of 17, blood pressure 124/55, satting 97% on room air Labs are significant for WBC count of 8.7, hemoglobin of 9.2, platelets of 128, BMP unremarkable. Lactic acid of 4.8, high sensitivity troponin of 28.5 that increased to 62.7 with no EKG changes.. COVID-19 negative. Patient underwent LP with glucose of 64 and protein of 38, and 0 WBC. Patient underwent multiple imaging including abdomen/pelvic CT, chest CT, head CT with no evidence of pneumonia or pleural effusion, colonic diverticulosis without diverticulitis, no evidence of small-bowel obstruction, hiatal hernia, Of pneumonia or pleural effusion Has CT shows motion degraded CT examination no evidence of acute intracranial pathology Patient will be admitted for further management Review of Systems Review of Systems: Yes Unobtainable due to mental status FOR[facility]LY [facility], [facility] Medical History Anxiety Fracture of left side of mandible GERD (gastroesophageal reflux disease) Hypertension Hypertriglyceridemia Mandibular fracture Migraine Myeloproliferative disorder SBO (small bowel obstruction) Family History Father Lung cancer Emphysema lung Mother History of hip replacement History of knee replacement Brother Thyroid nodule Pertinent family history: Unable to assess Surgical History History of arthroscopy of left knee History of colonoscopy History of esophagogastroduodenoscopy (EGD) History of reduction of closed fracture History of total abdominal hysterectomy and bilateral salpingo-oophorectomy Social History Household Members: Spouse Housing: House Do you presently have visiting nurse or other home services: No Alcohol intake: unknown Patient Tobacco Use Status: Never used Tobacco e-Cigarette/Vaping Use: Never Used Second Hand Smoke Exposure: No Use of substances other than those prescribed or required for medical reasons: No Have you been hit, kicked, punched, or otherwise hurt by someone within the past year? If so, by whom?: No Do you feel safe in your current relationship?: Yes Is there a partner from a previous relationship who is making you feel unsafe now?: No Are you made to feel afraid or neglected: No Advance Directives: No Advance Directives Information Provided: Yes Do you have thoughts of harming others: None Do you have a plan to hurt others: No Plan Recently lost weight without trying: No service: No Current occupational status: retired Meds Allergies Allergy/AdvReac Type Severity Reaction Status Date / Time Flu vaccine Allergy Unknown Whole arm Verified 03/21/21 18:10 redness/itchy Active Medications: Current Medications Vancomycin HCl 1,250 mg/ (Sodium Chloride) 250 mls @ 166.667 mls/hr IV ONCE ONE Stop: 03/21/21 23:38 Home Medications Medication Instructions Recorded Confirmed Last Taken Type allopurinol 300 mg tablet 300 mg PO DAILY 04/20/20 03/21/21 Unknown History aspirin 81 mg tablet,delayed 81 mg PO DAILY 04/20/20 03/21/21 Unknown History release (Adult Aspirin Regimen) esomeprazole magnesium 20 mg 20 mg PO DAILY 04/20/20 03/21/21 Unknown History capsule,delayed release melatonin 5 mg capsule 5 mg PO DAILY cap 04/20/20 03/21/21 Unknown History multivitamin with minerals-folic 1 tab PO DAILY 04/20/20 03/21/21 Unknown History acid 200 mcg chewable tablet (Adult Multivitamin Gummies) ruxolitinib 10 mg tablet (Jakafi) 15 mg PO BID tab 11/11/20 03/21/21 Unknown History Physical Exam Vital Signs and Narrative: Vital Signs: Last Vital Signs Temp 97.7 F 03/21/21 21:11 Pulse 100 03/21/21 22:08 Resp 18 03/21/21 22:08 BP 167/83 H 03/21/21 22:08 Pulse Ox 98 03/21/21 22:08 Oxygen Flow Rate 5 03/21/21 22:08 Body Mass Index 22.8 Const: Other: Very confused, alert but very difficult to direct Eyes: General: appearance normal, both eyes and all related structures Resp: Effort & Inspection: normal respiratory effort Auscultation: clear to auscultation bilaterally Cardio: Rate: regular rate Rhythm: regular rhythm GI: Palpation (GI): Soft to palpation Auscultation: normal bowel sounds Skin: General skin exam: no rashes or lesions noted Neuro: Other: Unable to assess neurological exam as patient is not following command Cognition (Neuro): normal cognition Extrem: General: Yes normal to inspection and Yes no pedal edema Results Labs CBC and Chem 7: 03/22/21 05:14 03/22/21 05:14 Labs: Laboratory Results - last 24 hr 03/21/21 03/21/21 03/21/21 18:44 18:44 18:44 MCV 92.8 MCH 30.7 MCHC 33.1 RDW 15.5 Plt Count 187 MPV 9.6 Immature Gran % (Auto) Cancelled Neut % (Auto) Cancelled Lymph % (Auto) Cancelled [place] % (Auto) Cancelled Eos % (Auto) Cancelled Baso % (Auto) Cancelled Lymph # (Auto) Cancelled [place] # (Auto) Cancelled Eos # (Auto) Cancelled Baso # (Auto) Cancelled Abs Immat Gran (auto) Cancelled Absolute Neuts (auto) Cancelled Absolute Nucleated RBC 0.330 H Nucleated RBC % (auto) 2.9 H Neutrophils % (Manual) 50 Band Neutrophils % 14 H Lymphocytes % (Manual) 8 L Atypical Lymphs % (Man) 1 Monocytes % (Manual) 5 Eosinophils % (Manual) 5 H Basophils % (Manual) 12 H Metamyelocytes % 2 Myelocytes % 1 Promyelocytes % 2 Abs Neuts (Manual) 7.3 Lymphocytes # (Manual) 0.9 Atyp Lymphs # (Manual) 0.1 Monocytes # (Manual) 0.6 Eosinophils # (Manual) 0.6 Basophils # (Manual) 1.4 H Metamyelocytes # 0.2 Myelocytes # 0.1 Promyelocytes # 0.2 Nucleated RBCs 1 H Platelet Estimate SLIGHTLY DECREASED Large Platelets PRESENT Plt Morphology Comment AGRANULAR RBC Morphology NOTED Polychromasia 2+ (3-5) Macrocytosis 1+ (5-14) Tear Drop Cells 2+ (3-5) Acanthocytes (Spur) 1+ (0-2) PT INR APTT Anion Gap 16 Estim Creat Clear Calc 41.7 Estimated GFR 49 Random Glucose 111 Lactic Acid Lactic Acid Fup @ 2Hr Calcium 10.2 D Total Bilirubin 0.8 Direct Bilirubin 0.3 AST 29 D ALT 33 H Alkaline Phosphatase 190 H D Troponin I High Sens 28.5 H* Total Protein 7.1 Albumin 4.7 Lipase 14 Urine Color Urine Appearance Urine pH Ur Specific [place] Urine Protein Urine Glucose (UA) Urine Ketones Urine Blood Urine Nitrite Ur Leukocyte Esterase Urine RBC Urine WBC Ur Squamous Epith Cells Amorphous Sediment Urine Bacteria CSF Tube Number CSF Volume CSF Appearance CSF Color CSF WBC CSF RBC CSF Appearance (b) CSF Glucose CSF Total Protein Urine Opiates Screen Urine Fentanyl Screen Ur Barbiturates Screen Ur Phencyclidine Scrn Ur Amphetamines Screen U Benzodiazepines Scrn Urine Cocaine Screen U Marijuana (THC) Screen Ethyl Alcohol Coronavirus (PCR) Influenza Type A (PCR) Influenza Type B (PCR) RSV RNA Qual (PCR) 03/21/21 03/21/21 03/21/21 18:45 19:48 19:48 MCV MCH MCHC RDW Plt Count MPV Immature Gran % (Auto) Neut % (Auto) Lymph % (Auto) [place] % (Auto) Eos % (Auto) Baso % (Auto) Lymph # (Auto) [place] # (Auto) Eos # (Auto) Baso # (Auto) Abs Immat Gran (auto) Absolute Neuts (auto) Absolute Nucleated RBC Nucleated RBC % (auto) Neutrophils % (Manual) Band Neutrophils % Lymphocytes % (Manual) Atypical Lymphs % (Man) Monocytes % (Manual) Eosinophils % (Manual) Basophils % (Manual) Metamyelocytes % Myelocytes % Promyelocytes % Abs Neuts (Manual) Lymphocytes # (Manual) Atyp Lymphs # (Manual) Monocytes # (Manual) Eosinophils # (Manual) Basophils # (Manual) Metamyelocytes # Myelocytes # Promyelocytes # Nucleated RBCs Platelet Estimate Large Platelets Plt Morphology Comment RBC Morphology Polychromasia Macrocytosis Tear Drop Cells Acanthocytes (Spur) PT 12.4 INR 1.1 APTT 40.1 H Anion Gap Estim Creat Clear Calc Estimated GFR Random Glucose Lactic Acid Lactic Acid Fup @ 2Hr Calcium Total Bilirubin Direct Bilirubin AST ALT Alkaline Phosphatase Troponin I High Sens Total Protein Albumin Lipase Urine Color Urine Appearance Urine pH Ur Specific [place] Urine Protein Urine Glucose (UA) Urine Ketones Urine Blood Urine Nitrite Ur Leukocyte Esterase Urine RBC Urine WBC Ur Squamous Epith Cells Amorphous Sediment Urine Bacteria CSF Tube Number CSF Volume CSF Appearance CSF Color CSF WBC CSF RBC CSF Appearance (b) CSF Glucose CSF Total Protein Urine Opiates Screen Urine Fentanyl Screen Ur Barbiturates Screen Ur Phencyclidine Scrn Ur Amphetamines Screen U Benzodiazepines Scrn Urine Cocaine Screen U Marijuana (THC) Screen Ethyl Alcohol < 10 Coronavirus (PCR) NEGATIVE Influenza Type A (PCR) NEGATIVE Influenza Type B (PCR) NEGATIVE RSV RNA Qual (PCR) NEGATIVE 03/21/21 03/21/21 03/21/21 19:50 20:03 20:03 MCV MCH MCHC RDW Plt Count MPV Immature Gran % (Auto) Neut % (Auto) Lymph % (Auto) [place] % (Auto) Eos % (Auto) Baso % (Auto) Lymph # (Auto) [place] # (Auto) Eos # (Auto) Baso # (Auto) Abs Immat Gran (auto) Absolute Neuts (auto) Absolute Nucleated RBC Nucleated RBC % (auto) Neutrophils % (Manual) Band Neutrophils % Lymphocytes % (Manual) Atypical Lymphs % (Man) Monocytes % (Manual) Eosinophils % (Manual) Basophils % (Manual) Metamyelocytes % Myelocytes % Promyelocytes % Abs Neuts (Manual) Lymphocytes # (Manual) Atyp Lymphs # (Manual) Monocytes # (Manual) Eosinophils # (Manual) Basophils # (Manual) Metamyelocytes # Myelocytes # Promyelocytes # Nucleated RBCs Platelet Estimate Large Platelets Plt Morphology Comment RBC Morphology Polychromasia Macrocytosis Tear Drop Cells Acanthocytes (Spur) PT INR APTT Anion Gap Estim Creat Clear Calc Estimated GFR Random Glucose Lactic Acid 4.8 H* Lactic Acid Fup @ 2Hr Calcium Total Bilirubin Direct Bilirubin AST ALT Alkaline Phosphatase Troponin I High Sens Total Protein Albumin Lipase Urine Color YELLOW Urine Appearance CLEAR Urine pH 8.5 H Ur Specific [place] 1.010 Urine Protein 2+ H Urine Glucose (UA) NEG Urine Ketones NEG Urine Blood NEG Urine Nitrite NEG Ur Leukocyte Esterase NEG Urine RBC 0-2 Urine WBC 0-2 Ur Squamous Epith Cells TRACE Amorphous Sediment 2+ Urine Bacteria NONE CSF Tube Number CSF Volume CSF Appearance CSF Color CSF WBC CSF RBC CSF Appearance (b) CSF Glucose CSF Total Protein Urine Opiates Screen POSITIVE H Urine Fentanyl Screen Not Detected Ur Barbiturates Screen Not Detected Ur Phencyclidine Scrn Not Detected Ur Amphetamines Screen Not Detected U Benzodiazepines Scrn Not Detected Urine Cocaine Screen Not Detected U Marijuana (THC) Screen Not Detected Ethyl Alcohol Coronavirus (PCR) Influenza Type A (PCR) Influenza Type B (PCR) RSV RNA Qual (PCR) 03/21/21 03/21/21 03/21/21 20:52 20:57 21:33 MCV MCH MCHC RDW Plt Count MPV Immature Gran % (Auto) Neut % (Auto) Lymph % (Auto) [place] % (Auto) Eos % (Auto) Baso % (Auto) Lymph # (Auto) [place] # (Auto) Eos # (Auto) Baso # (Auto) Abs Immat Gran (auto) Absolute Neuts (auto) Absolute Nucleated RBC Nucleated RBC % (auto) Neutrophils % (Manual) Band Neutrophils % Lymphocytes % (Manual) Atypical Lymphs % (Man) Monocytes % (Manual) Eosinophils % (Manual) Basophils % (Manual) Metamyelocytes % Myelocytes % Promyelocytes % Abs Neuts (Manual) Lymphocytes # (Manual) Atyp Lymphs # (Manual) Monocytes # (Manual) Eosinophils # (Manual) Basophils # (Manual) Metamyelocytes # Myelocytes # Promyelocytes # Nucleated RBCs Platelet Estimate Large Platelets Plt Morphology Comment RBC Morphology Polychromasia Macrocytosis Tear Drop Cells Acanthocytes (Spur) PT INR APTT Anion Gap Estim Creat Clear Calc Estimated GFR Random Glucose Lactic Acid 3.4 H* Lactic Acid Fup @ 2Hr Calcium Total Bilirubin Direct Bilirubin AST ALT Alkaline Phosphatase Troponin I High Sens 62.7 H* D Total Protein Albumin Lipase Urine Color Urine Appearance Urine pH Ur Specific [place] Urine Protein Urine Glucose (UA) Urine Ketones Urine Blood Urine Nitrite Ur Leukocyte Esterase Urine RBC Urine WBC Ur Squamous Epith Cells Amorphous Sediment Urine Bacteria CSF Tube Number 2 CSF Volume CSF Appearance CSF Color CSF WBC CSF RBC CSF Appearance (b) Clear, Colorless CSF Glucose 64 CSF Total Protein 38.1 Urine Opiates Screen Urine Fentanyl Screen Ur Barbiturates Screen Ur Phencyclidine Scrn Ur Amphetamines Screen U Benzodiazepines Scrn Urine Cocaine Screen U Marijuana (THC) Screen Ethyl Alcohol Coronavirus (PCR) Influenza Type A (PCR) Influenza Type B (PCR) RSV RNA Qual (PCR) 03/21/21 03/21/21 21:33 22:33 MCV MCH MCHC RDW Plt Count MPV Immature Gran % (Auto) Neut % (Auto) Lymph % (Auto) [place] % (Auto) Eos % (Auto) Baso % (Auto) Lymph # (Auto) [place] # (Auto) Eos # (Auto) Baso # (Auto) Abs Immat Gran (auto) Absolute Neuts (auto) Absolute Nucleated RBC Nucleated RBC % (auto) Neutrophils % (Manual) Band Neutrophils % Lymphocytes % (Manual) Atypical Lymphs % (Man) Monocytes % (Manual) Eosinophils % (Manual) Basophils % (Manual) Metamyelocytes % Myelocytes % Promyelocytes % Abs Neuts (Manual) Lymphocytes # (Manual) Atyp Lymphs # (Manual) Monocytes # (Manual) Eosinophils # (Manual) Basophils # (Manual) Metamyelocytes # Myelocytes # Promyelocytes # Nucleated RBCs Platelet Estimate Large Platelets Plt Morphology Comment RBC Morphology Polychromasia Macrocytosis Tear Drop Cells Acanthocytes (Spur) PT INR APTT Anion Gap Estim Creat Clear Calc Estimated GFR Random Glucose Lactic Acid Lactic Acid Fup @ 2Hr 2.0 Calcium Total Bilirubin Direct Bilirubin AST ALT Alkaline Phosphatase Troponin I High Sens Total Protein Albumin Lipase Urine Color Urine Appearance Urine pH Ur Specific [place] Urine Protein Urine Glucose (UA) Urine Ketones Urine Blood Urine Nitrite Ur Leukocyte Esterase Urine RBC Urine WBC Ur Squamous Epith Cells Amorphous Sediment Urine Bacteria CSF Tube Number 4 CSF Volume 2.0 CSF Appearance CLEAR CSF Color COLORLESS CSF WBC 0 CSF RBC 45 CSF Appearance (b) CSF Glucose CSF Total Protein Urine Opiates Screen Urine Fentanyl Screen Ur Barbiturates Screen Ur Phencyclidine Scrn Ur Amphetamines Screen U Benzodiazepines Scrn Urine Cocaine Screen U Marijuana (THC) Screen Ethyl Alcohol Coronavirus (PCR) Influenza Type A (PCR) Influenza Type B (PCR) RSV RNA Qual (PCR) Imaging Radiologist's Impressions: Impressions Head CT 03/21/21 18:43 IMPRESSION: Motion degraded CT examination of the brain. No evidence of acute intracranial pathology. Chest CT 03/21/21 18:47 IMPRESSION: * No evidence of pneumonia or pleural effusion. * Colonic diverticulosis without diverticulitis. * No evidence of small bowel obstruction. * Chronic splenomegaly and chronic osseous sclerosis are noted in this patient with history of polycythemia vera and myelofibrosis. * Moderate hiatal hernia. Abdomen/Pelvis CT 03/21/21 19:06 IMPRESSION: * No evidence of pneumonia or pleural effusion. * Colonic diverticulosis without diverticulitis. * No evidence of small bowel obstruction. * Chronic splenomegaly and chronic osseous sclerosis are noted in this patient with history of polycythemia vera and myelofibrosis. * Moderate hiatal hernia. Assessment and Plan (1) Acute alteration in mental status: Status: Acute 75-year-old female with past medical history of hypertension, GERD, migraine headaches presents to the hospital initially with headache but subsequently developed significant delirium and encephalopathy # acute alteration in mental status - infectious versus metabolic versus acute delirious - unclear etiology at this time - no evidence of infection but has elevated lactic acidosis - chest CT abdomen CT head CT all negative - no leukocytosis, afebrile - patient undergoing a lot of stressful situations at home right now and not sleeping well therefore this may be secondary to delirium - LP showed no evidence of infection. - received IV antibiotics in the ED will continue - will consult Infectious Disease - after reviewing her med recs patient has been started on Ativan for agitation by her PCP, when asked her about it he reports that she never had any agitation and was mostly prescribed for anxiety # hypertension - stable - continue amlodipine # GERD - continue PPI # migraine headaches - continue home medications DVT prophylaxis: Heparin subQ Quality Stroke Does the patient have a stroke diagnosis?: No VTE Prior VTE?: No VTE Risk Level:: Medical - moderate - high VTE Device Contraindication: Treatment Not Indicated VTE Drug Contraindication: N/A - Med Ordered
[2021-03-21 23:33] LABS: Ammonia 48 umol/L (13-55)
[2021-03-22] VITALS (9 sets, daily range): BP systolic 124–167; BP diastolic 55–73; PULSE 80–111; RESP 16–18; TEMP 36.2–37.7; O2SAT 94–98
[2021-03-22] MEDS: vancomycin HCL 1,250 MG in 0.9 % Sodium Chloride 250 ML 166.67 MG IV
[2021-03-22] MEDS: Heparin Sodium,Porcine 5,000 UNIT/ML VIAL 5000 UNIT SUBCUT ×2 (02:52→14:23)
[2021-03-22 05:35] LABS: Hematocrit 28.1 % (37-47); Hemoglobin 9.2 g/dl (12.0-16.0); Mean Corpuscular HGB Conc 32.7 g/dl (31.0-35.0); Mean Corpuscular Hemoglobin 30.9 pg (27.0-33.0); Mean Corpuscular Volume 94.3 fL (80-98); Mean Platelet Volume 9.6 fL (9.4-12.3); Platelet Count 128 X10*3/uL (160-400); Red Blood Count 2.98 X10*6/uL (4.20-5.50); Red Cell Distribution Width 15.5 % (11.0-16.0); White Blood Count 8.7 X10*3/uL (4.8-10.8)
[2021-03-22] MEDS: Omeprazole 20 MG CAPSULE.DR PO (05:36)
[2021-03-22] MEDS: cefEPime HCl 1 GM in 0.9 % Sodium Chloride 50 ML IV ×2 (05:37→13:53)
[2021-03-22 05:49] LABS: Anion Gap 12 (12-20); Blood Urea Nitrogen 10 mg/dL (9-16); Calcium 8.6 mg/dL (8.4-10.2); Carbon Dioxide 23 mmol/L (22-29); Chloride 107 mmol/L (96-108); Creatinine Clr Calc Pharmacy 51.1; Estimated Glomerular Filt Rate > 60; Glucose Random 94 mg/dL (60-115); Potassium 3.8 mmol/L (3.3-5.1); Sodium 138 mmol/L (135-145)
[2021-03-22 06:01] LABS: Atypical Lymph Absolute Manual 0.1 x10*3/uL; Atypical Lymphs Percent Manual 1 % (0-6); Band Neutrophils Percent 15 % (3-5); Basophils Abs Manual 0.1 X10*3/uL (0.0-0.3); Basophils Percent Manual 1 % (0-1); Eosinophils Absolute Manual 0.3 X10*3/UL (0.0-0.8); Eosinophils Percent Manual 4 % (0-4); Lymphocytes Percent Manual 11 % (20-40); Metamyelocytes Absolute 0.3 X10*3/uL; Metamyelocytes Percent 3 %; Monocytes Absolute Manual 0.8 X10*3/uL (0.0-1.2); Monocytes Percent Manual 9 % (2-11); Myelocytes Absolute 0.1 X10*/uL; Myelocytes Percent 1 %; Neutrophils Absolute Manual 6.1 X10*3/uL (2.2-7.9); Neutrophils Percent Manual 55 % (45-73); Nucleated Red Blood Cells 5 /100WBC (0-0)
[2021-03-22 06:03] LABS: Basophilic Stippling 1+ (0-2) /OIF; Polychromasia 1+ (0-2) /OIF; RBC Morphology NOTED; Tear Drop Cells 1+ (0-2) /OIF
[2021-03-22 06:04] LABS: Large Platelet PRESENT; Platelet Estimate SLIGHTLY DECREASED (NORMAL); Platelet Morphology Comment NORMAL; WBC Morphology Comment HYPOGRANULAR
[2021-03-22] MEDS: Aspirin Enteric Coated 81 MG TABLET.DR PO (09:08)
[2021-03-22] MEDS: amLODIPine Besylate 5 MG TABLET PO (09:08)
[2021-03-22] MEDS: allopurinoL 300 MG TABLET PO (09:08)
[2021-03-22] MEDS: Multivitamin TABLET 1 TAB PO (09:08)
--- NOTE | 2021-03-22 09:41 | MHC.CM.PN ---
CM MET WITH PT WHO REPORTS SHE LIVES AT HOME WITH HER PT IS COMPLETELY INDEPENDENT, HAS NO DME AND NO SERVICES PT CONFIRMS HER PCP IS EUGENE ELIZONDO PT HAS A HCP NAMING HER HER AGENT-COPY REQUESTED. IMM DELIVERED CURRENT DC PLAN IS HOME WITH NO SERVICES TO TRANSPORT *PT WAS LOOKING FOR HER GLASSES. GLASSES NOT ON PTS BELONGINGS LIST. SHE BELIEVES HER MAY HAVE TOOK THEM. SHE WILL CALL.
--- NOTE | 2021-03-22 10:17 | P.PNIM_ITS ---
Subjective Subjective Date of Service: 03/22/21 Interval History: cc: headache, chills interval history: became agitated and delerious in ED, now completely back to baseline, headache and chills resolved Cardiovascular Cardiovascular: Reports no additional cardiovascular complaints Respiratory Respiratory: Reports no additional respiratory complaints Gastrointestinal Gastrointestinal: Reports no additional gastrointestinal complaints Physical Exam Vital Signs: Vital Signs: Last Vital Signs Temp 98.3 F 03/22/21 07:52 Pulse 88 03/22/21 09:08 Resp 18 03/22/21 07:52 BP 157/67 H 03/22/21 09:08 Pulse Ox 97 03/22/21 07:52 Oxygen Flow Rate 5 03/21/21 22:08 Body Mass Index 22.8 General: AO X 3, no acute distress Resp: CTA bilateral, no accessory muscles used CVS: S1,S2,RRR GI: soft, non tender, non distended Neuro: motor grossly intact, alert Psych: appropriate affect, appropriate insight Objective Data Active Medications Acetaminophen (Acetaminophen 325 Mg Tablet) 650 mg PO Q6H PRN PRN Reason: Pain, Mild (Pain Scale 1-3) Allopurinol (Allopurinol 300 Mg Tablet) 300 mg PO DAILY [facility] Last Admin: 03/22/21 09:08 Dose: 300 mg Documented by: LEIGHA Amlodipine Besylate (Amlodipine Besylate 5 Mg Tablet) 5 mg PO DAILY [facility]; Protocol Last Admin: 03/22/21 09:08 Dose: 5 mg Documented by: LEIGHA Aspirin (Aspirin Enteric Coated 81 Mg Tablet.) 81 mg PO DAILY [facility] Last Admin: 03/22/21 09:08 Dose: 81 mg Documented by: LEIGHA Docusate Sodium (Docusate Sodium 100 Mg Capsule) 100 mg PO DAILY PRN PRN Reason: Constipation Heparin Sodium (Porcine) (Heparin Sodium,Porcine 5,000 Unit/Ml Vial) 5,000 unit SUBCUT Q12H [facility] Last Admin: 03/22/21 02:52 Dose: 5,000 unit Documented by: SUPRIYA Cefepime HCl 1 gm/ Sodium (Chloride) 50 mls @ 100 mls/hr IV Q8H [facility] Last Infusion: 03/22/21 06:17 Dose: 0 mls/hr Documented by: SUPRIYA Vancomycin HCl 1,000 mg/ (Sodium Chloride) 270 mls @ 270 mls/hr IV Q24H [facility] Acyclovir Sodium 610 mg/ (Sodium Chloride) 112.2 mls @ 112.2 mls/hr IV Q12H [facility] Lorazepam (Lorazepam 0.5 Mg Tablet) 0.5 mg PO BEDTIME PRN PRN Reason: agitation Melatonin (Melatonin 3 Mg Tablet) 6 mg PO BEDTIME GIANNI Multivitamins/Vitamin C (Multivitamin Tablet) 1 tab PO DAILY GIANNI Last Admin: 03/22/21 09:08 Dose: 1 tab Documented by: LEIGHA Non-Formulary Medication (Ruxolitinib [Jakafi]) 15 mg PO BID [facility] Omeprazole (Omeprazole 20 Mg Capsule.Dr) 20 mg PO DAILY@0630 [facility] Last Admin: 03/22/21 05:36 Dose: 20 mg Documented by: SUPRIYA Ondansetron HCl (Ondansetron Hcl 4 Mg/2 Ml Vial) 4 mg IVPUSH Q8H PRN PRN Reason: Nausea and Vomiting Pharmacy Consult (Consult Rx Vancomycin Dosing) 1 each MISCELLANE DAILY PRN PRN Reason: Consult order Zolpidem Tartrate (Zolpidem Tartrate 5 Mg Tablet) 5 mg PO BEDTIME PRN PRN Reason: sleep Labs CBC & Chem 7: 03/22/21 05:14 03/22/21 05:14 Labs: Laboratory Results - last 24 hr 03/21/21 03/21/21 03/21/21 18:44 18:44 18:44 MCV 92.8 MCH 30.7 MCHC 33.1 RDW 15.5 Plt Count 187 MPV 9.6 Immature Gran % (Auto) Cancelled Neut % (Auto) Cancelled Lymph % (Auto) Cancelled [place] % (Auto) Cancelled Eos % (Auto) Cancelled Baso % (Auto) Cancelled Lymph # (Auto) Cancelled [place] # (Auto) Cancelled Eos # (Auto) Cancelled Baso # (Auto) Cancelled Abs Immat Gran (auto) Cancelled Absolute Neuts (auto) Cancelled Absolute Nucleated RBC 0.330 H Nucleated RBC % (auto) 2.9 H Neutrophils % (Manual) 50 Band Neutrophils % 14 H Lymphocytes % (Manual) 8 L Atypical Lymphs % (Man) 1 Monocytes % (Manual) 5 Eosinophils % (Manual) 5 H Basophils % (Manual) 12 H Metamyelocytes % 2 Myelocytes % 1 Promyelocytes % 2 Abs Neuts (Manual) 7.3 Lymphocytes # (Manual) 0.9 Atyp Lymphs # (Manual) 0.1 Monocytes # (Manual) 0.6 Eosinophils # (Manual) 0.6 Basophils # (Manual) 1.4 H Metamyelocytes # 0.2 Myelocytes # 0.1 Promyelocytes # 0.2 Nucleated RBCs 1 H WBC Morphology Comment Platelet Estimate SLIGHTLY DECREASED Large Platelets PRESENT Plt Morphology Comment AGRANULAR RBC Morphology NOTED Polychromasia 2+ (3-5) Basophilic Stippling Macrocytosis 1+ (5-14) Tear Drop Cells 2+ (3-5) Acanthocytes (Spur) 1+ (0-2) PT INR APTT Anion Gap 16 Estim Creat Clear Calc 41.7 Estimated GFR 49 Random Glucose 111 Lactic Acid Lactic Acid Fup @ 2Hr Calcium 10.2 D Total Bilirubin 0.8 Direct Bilirubin 0.3 AST 29 D ALT 33 H Alkaline Phosphatase 190 H D Ammonia Troponin I High Sens 28.5 H* Total Protein 7.1 Albumin 4.7 Lipase 14 Urine Color Urine Appearance Urine pH Ur Specific [place] Urine Protein Urine Glucose (UA) Urine Ketones Urine Blood Urine Nitrite Ur Leukocyte Esterase Urine RBC Urine WBC Ur Squamous Epith Cells Amorphous Sediment Urine Bacteria CSF Tube Number CSF Volume CSF Appearance CSF Color CSF WBC CSF RBC CSF Appearance (b) CSF Glucose CSF Total Protein Urine Opiates Screen Urine Fentanyl Screen Ur Barbiturates Screen Ur Phencyclidine Scrn Ur Amphetamines Screen U Benzodiazepines Scrn Urine Cocaine Screen U Marijuana (THC) Screen Ethyl Alcohol Respiratory Panel [place] Adenovirus (Rapid PCR) B.pert (TEM-PCR) B.parapertussis DNA PCR C. pneumoniae DNA (PCR) Coronavirus (PCR) Coronavirus OC43 (PCR) Coronavirus HKU1 (PCR) Coronavirus 229E (PCR) Coronavirus NL63 (PCR) Human Metapneumovir PCR Influenza A (RT-PCR) Influenza Type A (PCR) Influenza B (RT-PCR) Influenza Type B (PCR) M. pneumoniae (PCR) Parainfluenza 1 (PCR) Parainfluenza 2 (PCR) Parainfluenza 3 (PCR) Parainfluenza 4 (PCR) RSV (PCR) RSV RNA Qual (PCR) Entero/Rhino (PCR) SARS-CoV-2 RNA (RT-PCR) 03/21/21 03/21/21 03/21/21 18:45 18:45 19:48 MCV MCH MCHC RDW Plt Count MPV Immature Gran % (Auto) Neut % (Auto) Lymph % (Auto) [place] % (Auto) Eos % (Auto) Baso % (Auto) Lymph # (Auto) [place] # (Auto) Eos # (Auto) Baso # (Auto) Abs Immat Gran (auto) Absolute Neuts (auto) Absolute Nucleated RBC Nucleated RBC % (auto) Neutrophils % (Manual) Band Neutrophils % Lymphocytes % (Manual) Atypical Lymphs % (Man) Monocytes % (Manual) Eosinophils % (Manual) Basophils % (Manual) Metamyelocytes % Myelocytes % Promyelocytes % Abs Neuts (Manual) Lymphocytes # (Manual) Atyp Lymphs # (Manual) Monocytes # (Manual) Eosinophils # (Manual) Basophils # (Manual) Metamyelocytes # Myelocytes # Promyelocytes # Nucleated RBCs WBC Morphology Comment Platelet Estimate Large Platelets Plt Morphology Comment RBC Morphology Polychromasia Basophilic Stippling Macrocytosis Tear Drop Cells Acanthocytes (Spur) PT INR APTT Anion Gap Estim Creat Clear Calc Estimated GFR Random Glucose Lactic Acid Lactic Acid Fup @ 2Hr Calcium Total Bilirubin Direct Bilirubin AST ALT Alkaline Phosphatase Ammonia Troponin I High Sens Total Protein Albumin Lipase Urine Color Urine Appearance Urine pH Ur Specific [place] Urine Protein Urine Glucose (UA) Urine Ketones Urine Blood Urine Nitrite Ur Leukocyte Esterase Urine RBC Urine WBC Ur Squamous Epith Cells Amorphous Sediment Urine Bacteria CSF Tube Number CSF Volume CSF Appearance CSF Color CSF WBC CSF RBC CSF Appearance (b) CSF Glucose CSF Total Protein Urine Opiates Screen Urine Fentanyl Screen Ur Barbiturates Screen Ur Phencyclidine Scrn Ur Amphetamines Screen U Benzodiazepines Scrn Urine Cocaine Screen U Marijuana (THC) Screen Ethyl Alcohol < 10 Respiratory Panel [place] See Note Adenovirus (Rapid PCR) Not Detected B.pert (TEM-PCR) Not Detected B.parapertussis DNA PCR Not Detected C. pneumoniae DNA (PCR) Not Detected Coronavirus (PCR) NEGATIVE Coronavirus OC43 (PCR) Not Detected Coronavirus HKU1 (PCR) Not Detected Coronavirus 229E (PCR) Not Detected Coronavirus NL63 (PCR) Not Detected Human Metapneumovir PCR Not Detected Influenza A (RT-PCR) Not Detected Influenza Type A (PCR) NEGATIVE Influenza B (RT-PCR) Not Detected Influenza Type B (PCR) NEGATIVE M. pneumoniae (PCR) Not Detected Parainfluenza 1 (PCR) Not Detected Parainfluenza 2 (PCR) Not Detected Parainfluenza 3 (PCR) Not Detected Parainfluenza 4 (PCR) Not Detected RSV (PCR) Not Detected RSV RNA Qual (PCR) NEGATIVE Entero/Rhino (PCR) Not Detected SARS-CoV-2 RNA (RT-PCR) Not Detected 03/21/21 03/21/21 03/21/21 19:48 19:50 20:03 MCV MCH MCHC RDW Plt Count MPV Immature Gran % (Auto) Neut % (Auto) Lymph % (Auto) [place] % (Auto) Eos % (Auto) Baso % (Auto) Lymph # (Auto) [place] # (Auto) Eos # (Auto) Baso # (Auto) Abs Immat Gran (auto) Absolute Neuts (auto) Absolute Nucleated RBC Nucleated RBC % (auto) Neutrophils % (Manual) Band Neutrophils % Lymphocytes % (Manual) Atypical Lymphs % (Man) Monocytes % (Manual) Eosinophils % (Manual) Basophils % (Manual) Metamyelocytes % Myelocytes % Promyelocytes % Abs Neuts (Manual) Lymphocytes # (Manual) Atyp Lymphs # (Manual) Monocytes # (Manual) Eosinophils # (Manual) Basophils # (Manual) Metamyelocytes # Myelocytes # Promyelocytes # Nucleated RBCs WBC Morphology Comment Platelet Estimate Large Platelets Plt Morphology Comment RBC Morphology Polychromasia Basophilic Stippling Macrocytosis Tear Drop Cells Acanthocytes (Spur) PT 12.4 INR 1.1 APTT 40.1 H Anion Gap Estim Creat Clear Calc Estimated GFR Random Glucose Lactic Acid 4.8 H* Lactic Acid Fup @ 2Hr Calcium Total Bilirubin Direct Bilirubin AST ALT Alkaline Phosphatase Ammonia Troponin I High Sens Total Protein Albumin Lipase Urine Color YELLOW Urine Appearance CLEAR Urine pH 8.5 H Ur Specific [place] 1.010 Urine Protein 2+ H Urine Glucose (UA) NEG Urine Ketones NEG Urine Blood NEG Urine Nitrite NEG Ur Leukocyte Esterase NEG Urine RBC 0-2 Urine WBC 0-2 Ur Squamous Epith Cells TRACE Amorphous Sediment 2+ Urine Bacteria NONE CSF Tube Number CSF Volume CSF Appearance CSF Color CSF WBC CSF RBC CSF Appearance (b) CSF Glucose CSF Total Protein Urine Opiates Screen Urine Fentanyl Screen Ur Barbiturates Screen Ur Phencyclidine Scrn Ur Amphetamines Screen U Benzodiazepines Scrn Urine Cocaine Screen U Marijuana (THC) Screen Ethyl Alcohol Respiratory Panel [place] Adenovirus (Rapid PCR) B.pert (TEM-PCR) B.parapertussis DNA PCR C. pneumoniae DNA (PCR) Coronavirus (PCR) Coronavirus OC43 (PCR) Coronavirus HKU1 (PCR) Coronavirus 229E (PCR) Coronavirus NL63 (PCR) Human Metapneumovir PCR Influenza A (RT-PCR) Influenza Type A (PCR) Influenza B (RT-PCR) Influenza Type B (PCR) M. pneumoniae (PCR) Parainfluenza 1 (PCR) Parainfluenza 2 (PCR) Parainfluenza 3 (PCR) Parainfluenza 4 (PCR) RSV (PCR) RSV RNA Qual (PCR) Entero/Rhino (PCR) SARS-CoV-2 RNA (RT-PCR) 03/21/21 03/21/21 03/21/21 20:03 20:52 20:57 MCV MCH MCHC RDW Plt Count MPV Immature Gran % (Auto) Neut % (Auto) Lymph % (Auto) [place] % (Auto) Eos % (Auto) Baso % (Auto) Lymph # (Auto) [place] # (Auto) Eos # (Auto) Baso # (Auto) Abs Immat Gran (auto) Absolute Neuts (auto) Absolute Nucleated RBC Nucleated RBC % (auto) Neutrophils % (Manual) Band Neutrophils % Lymphocytes % (Manual) Atypical Lymphs % (Man) Monocytes % (Manual) Eosinophils % (Manual) Basophils % (Manual) Metamyelocytes % Myelocytes % Promyelocytes % Abs Neuts (Manual) Lymphocytes # (Manual) Atyp Lymphs # (Manual) Monocytes # (Manual) Eosinophils # (Manual) Basophils # (Manual) Metamyelocytes # Myelocytes # Promyelocytes # Nucleated RBCs WBC Morphology Comment Platelet Estimate Large Platelets Plt Morphology Comment RBC Morphology Polychromasia Basophilic Stippling Macrocytosis Tear Drop Cells Acanthocytes (Spur) PT INR APTT Anion Gap Estim Creat Clear Calc Estimated GFR Random Glucose Lactic Acid 3.4 H* Lactic Acid Fup @ 2Hr Calcium Total Bilirubin Direct Bilirubin AST ALT Alkaline Phosphatase Ammonia Troponin I High Sens 62.7 H* D Total Protein Albumin Lipase Urine Color Urine Appearance Urine pH Ur Specific [place] Urine Protein Urine Glucose (UA) Urine Ketones Urine Blood Urine Nitrite Ur Leukocyte Esterase Urine RBC Urine WBC Ur Squamous Epith Cells Amorphous Sediment Urine Bacteria CSF Tube Number CSF Volume CSF Appearance CSF Color CSF WBC CSF RBC CSF Appearance (b) CSF Glucose CSF Total Protein Urine Opiates Screen POSITIVE H Urine Fentanyl Screen Not Detected Ur Barbiturates Screen Not Detected Ur Phencyclidine Scrn Not Detected Ur Amphetamines Screen Not Detected U Benzodiazepines Scrn Not Detected Urine Cocaine Screen Not Detected U Marijuana (THC) Screen Not Detected Ethyl Alcohol Respiratory Panel [place] Adenovirus (Rapid PCR) B.pert (TEM-PCR) B.parapertussis DNA PCR C. pneumoniae DNA (PCR) Coronavirus (PCR) Coronavirus OC43 (PCR) Coronavirus HKU1 (PCR) Coronavirus 229E (PCR) Coronavirus NL63 (PCR) Human Metapneumovir PCR Influenza A (RT-PCR) Influenza Type A (PCR) Influenza B (RT-PCR) Influenza Type B (PCR) M. pneumoniae (PCR) Parainfluenza 1 (PCR) Parainfluenza 2 (PCR) Parainfluenza 3 (PCR) Parainfluenza 4 (PCR) RSV (PCR) RSV RNA Qual (PCR) Entero/Rhino (PCR) SARS-CoV-2 RNA (RT-PCR) 03/21/21 03/21/21 03/21/21 21:33 21:33 21:33 MCV MCH MCHC RDW Plt Count MPV Immature Gran % (Auto) Neut % (Auto) Lymph % (Auto) [place] % (Auto) Eos % (Auto) Baso % (Auto) Lymph # (Auto) [place] # (Auto) Eos # (Auto) Baso # (Auto) Abs Immat Gran (auto) Absolute Neuts (auto) Absolute Nucleated RBC Nucleated RBC % (auto) Neutrophils % (Manual) Band Neutrophils % Lymphocytes % (Manual) Atypical Lymphs % (Man) Monocytes % (Manual) Eosinophils % (Manual) Basophils % (Manual) Metamyelocytes % Myelocytes % Promyelocytes % Abs Neuts (Manual) Lymphocytes # (Manual) Atyp Lymphs # (Manual) Monocytes # (Manual) Eosinophils # (Manual) Basophils # (Manual) Metamyelocytes # Myelocytes # Promyelocytes # Nucleated RBCs WBC Morphology Comment Platelet Estimate Large Platelets Plt Morphology Comment RBC Morphology Polychromasia Basophilic Stippling Macrocytosis Tear Drop Cells Acanthocytes (Spur) PT INR APTT Anion Gap Estim Creat Clear Calc Estimated GFR Random Glucose Lactic Acid Lactic Acid Fup @ 2Hr Calcium Total Bilirubin Direct Bilirubin AST ALT Alkaline Phosphatase Ammonia 48 Troponin I High Sens Total Protein Albumin Lipase Urine Color Urine Appearance Urine pH Ur Specific [place] Urine Protein Urine Glucose (UA) Urine Ketones Urine Blood Urine Nitrite Ur Leukocyte Esterase Urine RBC Urine WBC Ur Squamous Epith Cells Amorphous Sediment Urine Bacteria CSF Tube Number 2 4 CSF Volume 2.0 CSF Appearance CLEAR CSF Color COLORLESS CSF WBC 0 CSF RBC 45 CSF Appearance (b) Clear, Colorless CSF Glucose 64 CSF Total Protein 38.1 Urine Opiates Screen Urine Fentanyl Screen Ur Barbiturates Screen Ur Phencyclidine Scrn Ur Amphetamines Screen U Benzodiazepines Scrn Urine Cocaine Screen U Marijuana (THC) Screen Ethyl Alcohol Respiratory Panel [place] Adenovirus (Rapid PCR) B.pert (TEM-PCR) B.parapertussis DNA PCR C. pneumoniae DNA (PCR) Coronavirus (PCR) Coronavirus OC43 (PCR) Coronavirus HKU1 (PCR) Coronavirus 229E (PCR) Coronavirus NL63 (PCR) Human Metapneumovir PCR Influenza A (RT-PCR) Influenza Type A (PCR) Influenza B (RT-PCR) Influenza Type B (PCR) M. pneumoniae (PCR) Parainfluenza 1 (PCR) Parainfluenza 2 (PCR) Parainfluenza 3 (PCR) Parainfluenza 4 (PCR) RSV (PCR) RSV RNA Qual (PCR) Entero/Rhino (PCR) SARS-CoV-2 RNA (RT-PCR) 03/21/21 03/22/21 03/22/21 22:33 05:14 05:14 MCV 94.3 MCH 30.9 MCHC 32.7 RDW 15.5 Plt Count 128 L D MPV 9.6 Immature Gran % (Auto) Cancelled Neut % (Auto) Cancelled Lymph % (Auto) Cancelled [place] % (Auto) Cancelled Eos % (Auto) Cancelled Baso % (Auto) Cancelled Lymph # (Auto) Cancelled [place] # (Auto) Cancelled Eos # (Auto) Cancelled Baso # (Auto) Cancelled Abs Immat Gran (auto) Cancelled Absolute Neuts (auto) Cancelled Absolute Nucleated RBC 0.350 H Nucleated RBC % (auto) 4.0 H Neutrophils % (Manual) 55 Band Neutrophils % 15 H Lymphocytes % (Manual) 11 L Atypical Lymphs % (Man) 1 Monocytes % (Manual) 9 Eosinophils % (Manual) 4 Basophils % (Manual) 1 Metamyelocytes % 3 Myelocytes % 1 Promyelocytes % Abs Neuts (Manual) 6.1 Lymphocytes # (Manual) 1.0 Atyp Lymphs # (Manual) 0.1 Monocytes # (Manual) 0.8 Eosinophils # (Manual) 0.3 Basophils # (Manual) 0.1 Metamyelocytes # 0.3 Myelocytes # 0.1 Promyelocytes # Nucleated RBCs 5 H WBC Morphology Comment HYPOGRANULAR Platelet Estimate SLIGHTLY DECREASED Large Platelets PRESENT Plt Morphology Comment NORMAL RBC Morphology NOTED Polychromasia 1+ (0-2) Basophilic Stippling 1+ (0-2) Macrocytosis Tear Drop Cells 1+ (0-2) Acanthocytes (Spur) PT INR APTT Anion Gap 12 Estim Creat Clear Calc 51.1 Estimated GFR > 60 Random Glucose 94 Lactic Acid Lactic Acid Fup @ 2Hr 2.0 Calcium 8.6 D Total Bilirubin Direct Bilirubin AST ALT Alkaline Phosphatase Ammonia Troponin I High Sens Total Protein Albumin Lipase Urine Color Urine Appearance Urine pH Ur Specific [place] Urine Protein Urine Glucose (UA) Urine Ketones Urine Blood Urine Nitrite Ur Leukocyte Esterase Urine RBC Urine WBC Ur Squamous Epith Cells Amorphous Sediment Urine Bacteria CSF Tube Number CSF Volume CSF Appearance CSF Color CSF WBC CSF RBC CSF Appearance (b) CSF Glucose CSF Total Protein Urine Opiates Screen Urine Fentanyl Screen Ur Barbiturates Screen Ur Phencyclidine Scrn Ur Amphetamines Screen U Benzodiazepines Scrn Urine Cocaine Screen U Marijuana (THC) Screen Ethyl Alcohol Respiratory Panel [place] Adenovirus (Rapid PCR) B.pert (TEM-PCR) B.parapertussis DNA PCR C. pneumoniae DNA (PCR) Coronavirus (PCR) Coronavirus OC43 (PCR) Coronavirus HKU1 (PCR) Coronavirus 229E (PCR) Coronavirus NL63 (PCR) Human Metapneumovir PCR Influenza A (RT-PCR) Influenza Type A (PCR) Influenza B (RT-PCR) Influenza Type B (PCR) M. pneumoniae (PCR) Parainfluenza 1 (PCR) Parainfluenza 2 (PCR) Parainfluenza 3 (PCR) Parainfluenza 4 (PCR) RSV (PCR) RSV RNA Qual (PCR) Entero/Rhino (PCR) SARS-CoV-2 RNA (RT-PCR) Microbiology Microbiology Results: Microbiology 03/21/21 21:33 Gram Stain - Final Cerebrospinal Fluid CSF Examination - Final Fluid Description - Final CSF Culture - Preliminary Culture in progress. Assessment and Plan (1) Acute alteration in mental status: Status: Acute (2) Lactic acidosis: Status: Acute (3) Myeloproliferative disorder: Status: Acute (4) Anxiety: Status: Acute Assessment and Plan: ? ? ?75-year-old female with past medical history of hypertension, GERD, migraine headaches presents to the hospital initially with headache but subsequently developed significant aMS acute alteration in mental status differential includes: infectious metabolic encephalopathy/ viral encephalitis, so far LP unremarkable, on empiric vanc, cefepime, acyclovir, follow up ID recs toxic encephalopathy from self medication - denies all but one dose of oxy acute psychosis due to life stressors (multiple family members with significant health issues currently) now back to baseline, continue to monitor hypertension continue amlodipine monitor bp GERD continue PPI migraine headaches tylenol DVT prophylaxis:? Heparin subQ Quality Stroke Does the patient have a stroke diagnosis?: No VTE Prior VTE?: No VTE Risk Level:: Medical - moderate - high VTE Device Contraindication: Treatment Not Indicated VTE Drug Contraindication: N/A - Med Ordered
--- NOTE | 2021-03-22 10:52 | HE.PHANOTE ---
Messageluis Maldonado to see if she could check in with the patients family to bring in the non-formulary medication. -Chantale Phan, PharmD [phone]
--- NOTE | 2021-03-22 15:57 | W.PM.IDCN ---
History of Present Illness Data of Consult Service Date: 03/22/21 Requesting physician: Glenn Young Primary Care Provider: Alejandro Larry MD HPI Reason for consult: chills She presents with weakness and shaking chills last day. She had started with worst headache of life LP shows 0 WBC and negative cultures so far. She has some outdoor exposure No one else is ill She has negative COVID testing She feels better now Review of Systems Review of Systems: Yes all other systems are reviewed and are negative PMFSH Past Medical History Medical History Anxiety Fracture of left side of mandible GERD (gastroesophageal reflux disease) Hypertension Hypertriglyceridemia Mandibular fracture Migraine Myeloproliferative disorder SBO (small bowel obstruction) Family History Family History Father Lung cancer Emphysema lung Mother History of hip replacement History of knee replacement Brother Thyroid nodule Surgical History Surgical History History of arthroscopy of left knee History of colonoscopy History of esophagogastroduodenoscopy (EGD) History of reduction of closed fracture History of total abdominal hysterectomy and bilateral salpingo-oophorectomy Social History Social History Household Members: Spouse Housing: House Do you presently have visiting nurse or other home services: No Alcohol intake: unknown Patient Tobacco Use Status: Never used Tobacco e-Cigarette/Vaping Use: Never Used Second Hand Smoke Exposure: No Use of substances other than those prescribed or required for medical reasons: No Currently Displaying Signs/Symptoms of Drug Intoxication Withdrawal: No Have you been hit, kicked, punched, or otherwise hurt by someone within the past year? If so, by whom?: No Do you feel safe in your current relationship?: Yes Is there a partner from a previous relationship who is making you feel unsafe now?: No Are you made to feel afraid or neglected: No Advance Directives: No Advance Directives Information Provided: Yes Do you have thoughts of harming others: None Do you have a plan to hurt others: No Plan Recently lost weight without trying: No service: No Current occupational status: retired Meds Allergies Allergy/AdvReac Type Severity Reaction Status Date / Time Flu vaccine Allergy Unknown Whole arm Verified 03/21/21 18:10 redness/itchy Active Medications: Current Medications Acetaminophen (Acetaminophen 325 Mg Tablet) 650 mg PO Q6H PRN PRN Reason: Pain, Mild (Pain Scale 1-3) Allopurinol (Allopurinol 300 Mg Tablet) 300 mg PO DAILY [facility] Last Admin: 03/22/21 09:08 Dose: 300 mg Documented by: Amlodipine Besylate (Amlodipine Besylate 5 Mg Tablet) 5 mg PO DAILY [facility]; Protocol Last Admin: 03/22/21 09:08 Dose: 5 mg Documented by: Aspirin (Aspirin Enteric Coated 81 Mg Tablet.) 81 mg PO DAILY [facility] Last Admin: 03/22/21 09:08 Dose: 81 mg Documented by: Docusate Sodium (Docusate Sodium 100 Mg Capsule) 100 mg PO DAILY PRN PRN Reason: Constipation Heparin Sodium (Porcine) (Heparin Sodium,Porcine 5,000 Unit/Ml Vial) 5,000 unit SUBCUT Q12H [facility] Last Admin: 03/22/21 14:23 Dose: 5,000 unit Documented by: Cefepime HCl 1 gm/ Sodium (Chloride) 50 mls @ 100 mls/hr IV Q8H [facility] Last Infusion: 03/22/21 14:38 Dose: Infused Documented by: Vancomycin HCl 1,000 mg/ (Sodium Chloride) 270 mls @ 270 mls/hr IV Q24H [facility] Acyclovir Sodium 610 mg/ (Sodium Chloride) 112.2 mls @ 112.2 mls/hr IV Q12H [facility] Last Infusion: 03/22/21 12:16 Dose: Infused Documented by: Lorazepam (Lorazepam 0.5 Mg Tablet) 0.5 mg PO BEDTIME PRN PRN Reason: agitation Melatonin (Melatonin 3 Mg Tablet) 6 mg PO BEDTIME [facility] Multivitamins/Vitamin C (Multivitamin Tablet) 1 tab PO DAILY [facility] Last Admin: 03/22/21 09:08 Dose: 1 tab Documented by: Non-Formulary Medication (Ruxolitinib [Jakafi]) 15 mg PO BID [facility] Omeprazole (Omeprazole 20 Mg Capsule.) 20 mg PO DAILY@0630 [facility] Last Admin: 03/22/21 05:36 Dose: 20 mg Documented by: Ondansetron HCl (Ondansetron Hcl 4 Mg/2 Ml Vial) 4 mg IVPUSH Q8H PRN PRN Reason: Nausea and Vomiting Pharmacy Consult (Consult Rx Vancomycin Dosing) 1 each MISCELLANE DAILY PRN PRN Reason: Consult order Zolpidem Tartrate (Zolpidem Tartrate 5 Mg Tablet) 5 mg PO BEDTIME PRN PRN Reason: sleep Home Medications Medication Instructions Recorded Confirmed Last Taken Type allopurinol 300 mg tablet 300 mg PO DAILY 04/20/20 03/21/21 Unknown History aspirin 81 mg tablet,delayed 81 mg PO DAILY 04/20/20 03/21/21 Unknown History release (Adult Aspirin Regimen) esomeprazole magnesium 20 mg 20 mg PO DAILY 04/20/20 03/21/21 Unknown History capsule,delayed release melatonin 5 mg capsule 5 mg PO DAILY cap 04/20/20 03/21/21 Unknown History multivitamin with minerals-folic 1 tab PO DAILY 04/20/20 03/21/21 Unknown History acid 200 mcg chewable tablet (Adult Multivitamin Gummies) ruxolitinib 15 mg tablet (Jakafi) 15 mg PO BID 03/22/21 03/22/21 Unknown History Physical Exam Vital Signs: Vital Signs: Last Vital Signs Temp 97.7 F 03/22/21 15:36 Pulse 90 03/22/21 15:36 Resp 17 03/22/21 15:36 BP 142/64 H 03/22/21 15:36 Pulse Ox 94 03/22/21 15:36 Oxygen Flow Rate 5 03/21/21 22:08 Body Mass Index 22.8 Const: General: cooperative HENMT: Head: Yes normal to inspection Mouth: Normal oral and palatal mucosa present Resp: Effort & Inspection: normal respiratory effort Cardio: Rate: regular rate Rhythm: regular rhythm Skin: General skin exam: no rashes or lesions noted Extrem: General: Yes normal to inspection Results Labs CBC & Chem 7: 03/22/21 05:14 03/22/21 05:14 Labs: Short CBC 03/21/21 03/22/21 Range/Units 18:44 05:14 WBC 11.4 H 8.7 (4.8-10.8) X10*3/uL Hgb 11.5 L 9.2 L (12.0-16.0) g/dl Hct 34.7 L 28.1 L (37-47) % Plt Count 187 128 L D (160-400) X10*3/uL BMP 03/21/21 03/22/21 18:44 05:14 Sodium 135 138 Potassium 4.3 3.8 Chloride 98 107 Carbon Dioxide 25 23 BUN 15 10 Creatinine 1.09 0.89 Calcium 10.2 D 8.6 D Liver Function 03/21/21 Range/Units 18:44 Total Bilirubin 0.8 (0.0-1.0) mg/dL Direct Bilirubin 0.3 (0.0-0.5) mg/dL AST 29 D (5-31) U/L ALT 33 H (0-31) U/L Alkaline Phosphatase 190 H D (39-117) U/L Albumin 4.7 (3.5-5.0) g/dL Urine 03/21/21 Range/Units 20:03 Urine Color YELLOW Urine Appearance CLEAR Urine pH 8.5 H (5.0-8.0) Ur Specific [place] 1.010 (1.005-1.025) Urine Protein 2+ H (NEG-TRACE) MG/DL Urine Glucose (UA) NEG (NEG) MG/DL Microbiology Microbiology Results: Microbiology 03/21/21 21:33 Cerebrospinal Fluid Gram Stain - Final 03/21/21 21:33 Cerebrospinal Fluid CSF Examination - Final 03/21/21 21:33 Cerebrospinal Fluid Fluid Description - Final 03/21/21 21:33 Cerebrospinal Fluid CSF Culture - Preliminary Culture in progress. Assessment and Plan (1) Lactic acidosis: Status: Acute (2) Acute alteration in mental status: Status: Acute She is back to baseline Microbiology and radiology unremarkable She possibly could have West Nile virus or tick borne illness Suggest po Doxycycline for a week Stop other antibiotics as CSF negative
--- NOTE | 2021-03-22 17:26 | PC.NURSE ---
Addendum entered by Erica Merrill RN 03/22/21 17:43: clarification to above.this order was for the lab to run if any fluid left. Original Note: An order from Dr Mittal for CSF to collect by nurse/provider. Patient had a lumbar puncture yesterday.Message sent back to Dr. Mittal via Mint for clarification.No answer yet .
--- NOTE | 2021-03-22 17:44 | PC.NURSE ---
patients came,left medication TAVON with patient in room.This RN received a bottle from patient contained 3 pills.Dropped off at [facility] for verification.
[2021-03-22] MEDS: Melatonin 3 MG TABLET 6 MG PO (20:41)
[2021-03-23] MEDS: Heparin Sodium,Porcine 5,000 UNIT/ML VIAL 5000 UNIT SUBCUT (02:37)
[2021-03-23 03:23] VITALS: BP 126/51; PULSE 73; RESP 16; TEMP 35.9; O2SAT 98
[2021-03-23] MEDS: Omeprazole 20 MG CAPSULE.DR PO (05:28)
[2021-03-23 07:16] VITALS: BP 151/68; PULSE 85; RESP 18; TEMP 36.8; O2SAT 98
[2021-03-23] MEDS: amLODIPine Besylate 5 MG TABLET PO (08:19)
[2021-03-23] MEDS: Multivitamin TABLET 1 TAB PO (08:20)
[2021-03-23] MEDS: allopurinoL 300 MG TABLET PO (08:20)
[2021-03-23] MEDS: Aspirin Enteric Coated 81 MG TABLET.DR PO (08:20)
[2021-03-23 11:28] VITALS: BP 155/67; PULSE 74; RESP 18; TEMP 37; O2SAT 98
--- NOTE | 2021-03-23 12:39 | PM.DS ---
DS: Providers Provider Date of Service: 03/23/21 Date of admission: 03/21/21 23:04 Primary care physician: Alejandro Larry MD Consults: 03/22/21 01:49 Consult to Infectious Diseases Routine Consulting Provider: Ermelinda Mittal Reason for consultation: sepsis, unknown source, encephalopathy Has provider been notified: No DS: Diagnosis Discharge Diagnosis (1) Lactic acidosis: Status: Acute (2) Acute alteration in mental status: Status: Acute DS: Summary Hospital Course Hospital Course: Patient was admitted for acute alteration in mental status and lactic acidosis Differential diagnosis included metabolic encephalopathy due to infection versus acute psychosis due to life stressors. She was empirically treated for encephalitis/meningitis, however, LP was negative and she was seen by infectious disease recommended discontinue treatment. She will be covered for possible tick-borne illness with doxycycline for7 days. Her mental status is now back to baseline. She did have wanted to blood cultures growing Gram-positive cocci in clusters. As this is most likely contaminant patient will be discharged home without specific treatment. She will be contacted if this is suspected to be a pathogen. Time Spent with Patient Time attestation: Total time spent providing and/or coordinating discharge services: Discharge coordination time: Greater than 30 minutes Quality: Stroke Does the patient have a stroke diagnosis?: No Physical Exam Vital Signs: Vital Signs: Last Vital Signs Temp 98.6 F 03/23/21 11:28 Pulse 74 03/23/21 11:28 Resp 18 03/23/21 11:28 BP 155/67 H 03/23/21 11:28 Pulse Ox 98 03/23/21 11:28 Oxygen Flow Rate 5 03/21/21 22:08 Body Mass Index 22.8 General: AO X 3, no acute distress Resp: CTA bilateral, no accessory muscles used CVS: S1,S2,RRR GI: soft, non tender, non distended Neuro: motor grossly intact, alert Psych: appropriate affect, appropriate insight DS: Data Data Completed and Pending Labs on day of discharge: Preliminary micro results at discharge 03/21/21 21:33 CSF Culture - Preliminary Cerebrospinal Fluid No growth after 1 day 03/21/21 19:48 Blood Culture - Preliminary Blood - Venous Prelim: GPC Gram Stain only 03/21/21 19:49 Blood Culture - Preliminary Blood - Venous No growth after 24 hours. Discharge Plan Discharge Patient Disposition: Home, Self-Care Discharge Diagnosis: ams Referrals: Alejandro Larry MD [Primary Care Provider] - 1 Week Discharge Medications: New doxycycline hyclate 100 mg Tablet 100 mg PO Q12H Qty: 14 RF: 0 Continued amlodipine 5 mg tablet 5 mg PO DAILY Qty: 90 RF: 2 lorazepam 0.5 mg tablet 0.5 mg PO BEDTIME PRN (Reason: agitation) 30 Days Qty: 30 RF: 0 Jakafi 15 mg tablet 15 mg PO BID RF: 0 aspirin [Adult Aspirin Regimen] 81 mg tablet,delayed release (DR/EC) 81 mg PO DAILY RF: 0 Adult Multivitamin Gummies 200 mcg tablet,chewable 1 tab PO DAILY RF: 0 allopurinol 300 mg tablet 300 mg PO DAILY RF: 0 esomeprazole magnesium 20 mg capsule,delayed release(DR/EC) 20 mg PO DAILY RF: 0 melatonin 5 mg capsule 5 mg PO DAILY RF: 0 zolpidem [Ambien] 5 mg tablet 5 mg PO BEDTIME PRN (Reason: sleep) 30 Days Qty: 30 RF: 0 Discharge Orders: Discharge Order (Routine); Ordered 03/23/21 Ordered By: Glenn Young Diet: advance to usual diet Activity on Discharge: As tolerated Stand Alone Forms: Patient Portal Discharge page Care Plan Goals: recovery Health Concerns: pending blood culture Plan of Treatment: empiric treatment with one week of doxcycline, will assume blood culture is a contaminant, but if a real infection we will call you, if you have further symptoms such as fever, chills please return to ED Assessment: see above
--- NOTE | 2021-03-23 12:39 | MHC.CM.PN ---
Patient has been medically cleared for dc to home today, no services. Last IMM addressed 03/22/2021.
[2021-03-24 17:46] LABS: HSV 1 DNA, CSF Not Detected (Not Detected); HSV 2 DNA, CSF Not Detected (Not Detected); Specimen Source CSF
[2021-04-01 10:02] LABS: Lyme IgG CSF Immunoblot NO BANDS DETECTED; Lyme IgM CSF Immunoblot NO BANDS DETECTED
== END 2021-03-23 13:12 | disposition home or self-care (01) | DRG 71 ==
LOC: HO.ED 21:59 → HO.S3 03-22 00:43
PROVIDERS: Physician Assistant; Admitting Provider Internal Medicine; Emergency Provider Emergency Medicine; PCP Internal Medicine; Visit Provider Internal Medicine
DX: G93.41 Metabolic encephalopathy (principal); E87.2 Acidosis; F23 Brief psychotic disorder; K21.9 Gastro-esophageal reflux disease without esophagitis; E78.5 Hyperlipidemia, unspecified; I10 Essential (primary) hypertension; G43.909 Migraine, unspecified, not intractable, without status migrainosus; Z20.822 Contact with and (suspected) exposure to COVID-19; Z79.82 Long term (current) use of aspirin; Z79.899 Other long term (current) drug therapy
CPT/HCPCS: 0241U; 36415; 70450; 71250; 74176; 80048; 80076; 80307; 81001; 82077; 82140; 82945; 83605; 83690; 84157; 84484; 85007; 85027; 85610; 85730; 86617; 87015; 87040; 87070; 87147; 87205; 87529; 87633; 89051; 93005; 99285; J0133; J0692; J0696; J2060; J3370

== ENCOUNTER 2021-11-24 13:39 | Outpatient (REF) | payer MEDICARE, OTHER, SELFPAY ==
[2021-11-24 14:02] LABS: Hemoglobin 9.5 g/dl (12.0-16.0); Mean Corpuscular HGB Conc 31.7 g/dl (31.0-35.0); Mean Corpuscular Hemoglobin 30.4 pg (27.0-33.0); Mean Corpuscular Volume 96.2 fL (80.0-98.0); Mean Platelet Volume 10.5 fL (9.4-12.3); Platelet Count 133 X10*3/uL (160-400); Red Blood Count 3.12 X10*6/uL (4.20-5.50); Red Cell Distribution Width 16.9 % (11.0-16.0); White Blood Count 14.2 X10*3/uL (4.8-10.8)
[2021-11-24 14:03] LABS: NRBC Pct Auto 3.3 /100WBC (0.0-0.2)
[2021-11-24 14:57] LABS: Anion Gap 13 (12-20); Blood Urea Nitrogen 16 mg/dL (9-16); Calcium 9.8 mg/dL (8.4-10.2); Carbon Dioxide 25 mmol/L (22-29); Chloride 104 mmol/L (96-108); Estimated Glomerular Filt Rate 47; Glucose Random 93 mg/dL (60-115); Potassium 5.2 mmol/L (3.3-5.1); Sodium 137 mmol/L (135-145)
[2021-11-24 15:03] LABS: Band Neutrophils Percent 15 % (3-5); Basophils Abs Manual 0.7 X10*3/uL (0.0-0.2); Basophils Percent Manual 5 % (0-2); Blast Percent 2 %; Blastocytes Absolute 0.3 X10*3/uL; Eosinophils Absolute Manual 0.3 X10*3/uL (0.0-0.4); Eosinophils Percent Manual 2 % (0-4); Lymphocytes Absolute Manual 2.3 X10*3/uL (1.2-4.9); Lymphocytes Percent Manual 16 % (20-40); Monocytes Absolute Manual 0.7 X10*3/uL (0.1-1.2); Monocytes Percent Manual 5 % (2-11); Myelocytes Absolute 0.4 X10*/uL; Myelocytes Percent 3 %; Neutrophils Absolute Manual 9.5 X10*3/uL (2.0-8.3); Neutrophils Percent Manual 52 % (45-73); Nucleated Red Blood Cells 8 /100WBC (0-0)
[2021-11-24 15:08] LABS: Microcytosis 1+ (5-14) /OIF; Ovalocytes 1+ (5-14) /OIF; RBC Morphology NOTED; Schistocytes 1+ (0-2) /OIF; Spherocytes 1+ (0-2) /OIF; Tear Drop Cells 1+ (0-2) /OIF
[2021-11-24 15:09] LABS: Polychromasia 1+ (0-2) /OIF
[2021-11-24 15:10] LABS: Platelet Estimate SLIGHTLY DECREASED (NORMAL); Platelet Morphology Comment NORMAL
[2021-11-24 15:21] LABS: Folate > 20.0 ng/mL (> or = 4.0); Vitamin B12 934 pg/mL (200-900)
== END 2021-11-24 13:40 | disposition home or self-care (01) ==
LOC: HO.LAB 13:39
PROVIDERS: PCP Internal Medicine; Visit Provider Psychiatry & Neurology Neurology
DX: G31.84 Mild cognitive impairment of uncertain or unknown etiology (principal)
CPT/HCPCS: 36415; 80048; 82607; 82746; 84443; 85007; 85025; 85027

== ENCOUNTER 2021-12-08 15:15 | Outpatient (REF) | payer MEDICARE, OTHER, SELFPAY ==
--- NOTE | ~2021-12-08 | CT_ITS ---
EXAMINATION: CT HEAD WITHOUT CONTRAST CLINICAL INFORMATION: Mild cognitive impairment. COMPARISON: None TECHNIQUE: Contiguous axial imaging was performed from the skull base to vertex without intravenous administration of contrast. This CT examination was performed using dose optimization techniques as appropriate, variously including the following: *Automated exposure control *Adjustment of mA and/or kV according to patient size (this includes techniques or standardized protocols for targeted exams where dose is matched to indication/reason for exam; i.e. extremities or head) *Use of iterative reconstruction technique DLP: 677 mGy-cm FINDINGS: There is no evidence of acute intracranial hemorrhage or territorial infarction. No abnormal mass effect or midline shift is seen. Munoz to white matter differentiation is well preserved. No extra-axial fluid collections are identified. The ventricles are normal in size. There is no abnormal attenuation within the brain parenchyma. The osseous structures and soft tissues are normal. The mastoid air cells and visualized portions of the paranasal sinuses are well aerated. CT/CT head/brain wo con IMPRESSION: No acute intracranial process seen.
== END 2021-12-08 15:16 | disposition home or self-care (01) ==
LOC: HO.CT 15:15
PROVIDERS: PCP Internal Medicine; Visit Provider Psychiatry & Neurology Neurology
DX: G31.84 Mild cognitive impairment of uncertain or unknown etiology (principal)
CPT/HCPCS: 70450

== ENCOUNTER 2021-12-24 09:23 | Outpatient (REF) | payer MEDICARE, OTHER, SELFPAY ==
--- NOTE | ~2021-12-24 | XR_ITS ---
EXAMINATION: XR CHEST CLINICAL INFORMATION: U07.1 - COVID-19 COMPARISON: Chest radiographs 02/02/2020, 03/05/2018, 02/09/2016 TECHNIQUE: 2 views of the chest were obtained. FINDINGS: No acute intrathoracic disease. Lungs are clear. No airspace consolidation or groundglass opacity or effusion. Heart size is upper limits of normal versus borderline enlarged, unchanged. The vascularity is normal. The costophrenic sulci are clear. The hilar and mediastinal contours and visualized bony structures are stable. XR/XR chest 2V IMPRESSION: Unremarkable examination.
[2021-12-24 10:08] LABS: Hematocrit 30.8 % (37.0-47.0); Hemoglobin 10.4 g/dl (12.0-16.0); Mean Corpuscular HGB Conc 33.8 g/dl (31.0-35.0); Mean Corpuscular Hemoglobin 31.4 pg (27.0-33.0); Mean Corpuscular Volume 93.1 fL (80.0-98.0); Platelet Count 218 X10*3/uL (160-400); Red Blood Count 3.31 X10*6/uL (4.20-5.50); Red Cell Distribution Width 16.6 % (11.0-16.0); White Blood Count 16.5 X10*3/uL (4.8-10.8)
[2021-12-24 10:10] LABS: NRBC Pct Auto 1.8 /100WBC (0.0-0.2)
[2021-12-24 10:41] LABS: Alanine Aminotransferase 25 U/L (0-31); Albumin Level 4.6 g/dL (3.5-5.0); Alkaline Phosphatase 95 U/L (39-117); Anion Gap 12 (12-20); Aspartate Amino Transferase 26 U/L (5-31); Bilirubin Total 0.8 mg/dL (0.0-1.0); Blood Urea Nitrogen 21 mg/dL (9-16); Calcium 9.5 mg/dL (8.4-10.2); Carbon Dioxide 25 mmol/L (22-29); Chloride 98 mmol/L (96-108); Estimated Glomerular Filt Rate 50; Glucose Random 94 mg/dL (60-115); Potassium 5.3 mmol/L (3.3-5.1); Sodium 130 mmol/L (135-145); Total Protein 6.9 g/dL (6.5-8.0)
[2021-12-24 10:46] LABS: Band Neutrophils Percent 13 % (3-5); Basophils Percent Manual 6 % (0-2); Blast Percent 5 %; Blastocytes Absolute 0.8 X10*3/uL; Eosinophils Absolute Manual 0.5 X10*3/uL (0.0-0.4); Eosinophils Percent Manual 3 % (0-4); Lymphocytes Percent Manual 6 % (20-40); Metamyelocytes Absolute 0.7 X10*3/uL; Metamyelocytes Percent 4 %; Monocytes Absolute Manual 0.8 X10*3/uL (0.1-1.2); Monocytes Percent Manual 5 % (2-11); Myelocytes Absolute 0.5 X10*/uL; Myelocytes Percent 3 %; Neutrophils Absolute Manual 11.2 X10*3/uL (2.0-8.3); Neutrophils Percent Manual 55 % (45-73); Nucleated Red Blood Cells 2 /100WBC (0-0)
[2021-12-24 10:48] LABS: Platelet Estimate NORMAL (NORMAL); RBC Morphology NOTED
[2021-12-24 10:49] LABS: Polychromasia 1+ (0-2) /OIF
[2021-12-24 10:50] LABS: Large Platelet PRESENT; Ovalocytes 1+ (5-14) /OIF; Platelet Morphology Comment NOTED; Tear Drop Cells 1+ (0-2) /OIF
[2021-12-24 10:52] LABS: Appearance Urine CLEAR; Color Urine YELLOW; Glucose Urine UA NEG (NEG); Leukocyte Esterase Urine TRACE (NEG); Nitrite Urine NEG (NEG); Urine Blood NEG (NEG); Urine Ketones 5 MG/DL (NEG); Urine Protein NEG (NEG-TRACE)
[2021-12-24 11:49] LABS: Mucus Urine 1+ /LPF; Squamous Epithelial Cell Urine 2+ /LPF
[2021-12-24 11:50] LABS: WBC Urine 0-2 /HPF (0-4)
[2021-12-24 11:51] LABS: Bacteria Urine TRACE /LPF; RBC Urine 0 /HPF (0)
== END 2021-12-24 09:24 | disposition home or self-care (01) ==
LOC: HO.LAB 09:23
PROVIDERS: PCP Internal Medicine; Visit Provider Internal Medicine
DX: U07.1 COVID-19 (principal)
CPT/HCPCS: 36415; 71046; 80053; 81001; 85007; 85025; 85027

== ENCOUNTER 2021-12-31 07:45 | Outpatient (REF) | payer MEDICARE, OTHER, SELFPAY | END 2021-12-31 07:46 | disposition home or self-care (01) | LOC: HO.HOSX 07:45 | PROVIDERS: Visit Provider Physician Assistant | DX: M17.0 Bilateral primary osteoarthritis of knee (principal) | CPT/HCPCS: 20610; 99202; J1040 ==

== ENCOUNTER 2022-01-12 13:59 | Emergency (ER) | payer MEDICARE, OTHER, SELFPAY ==
[2022-01-12 14:03] VITALS: BP 148/85; PULSE 82; RESP 18; TEMP 36.8; O2SAT 97; BMI 22.1
--- NOTE | 2022-01-12 14:09 | ECG_ITS ---
Test Reason : neuro sympotoms Blood Pressure : / mmHG Vent. Rate : 082 BPM Atrial Rate : 082 BPM P-R Int : 130 ms QRS Dur : 074 ms QT Int : 346 ms P-R-T Axes : 038 019 028 degrees QTc Int : 404 ms Normal sinus rhythm Normal ECG When compared with ECG of 21-MAR-2021 22:22, Premature supraventricular complexes are no longer Present Vent. rate has decreased BY [address] no longer depressed in Lateral leads Referred By: Generic ED Physician Electronically Signed By:Juan Oneill
[2022-01-12 14:29] LABS: Hematocrit 33.5 % (37.0-47.0); Mean Corpuscular HGB Conc 32.8 g/dl (31.0-35.0); Mean Corpuscular Hemoglobin 30.8 pg (27.0-33.0); Mean Corpuscular Volume 93.8 fL (80.0-98.0); Mean Platelet Volume 10.7 fL (9.4-12.3); Platelet Count 262 X10*3/uL (160-400); Red Blood Count 3.57 X10*6/uL (4.20-5.50); Red Cell Distribution Width 16.9 % (11.0-16.0)
[2022-01-12 14:31] LABS: NRBC Pct Auto 6.6 /100WBC (0.0-0.2)
[2022-01-12 14:32] LABS: WBC ABN SCTR FOR CBC 1
[2022-01-12 14:43] LABS: Troponin-I High Sensitivity < 3.5 ng/L (<3.5-17.0)
[2022-01-12 14:46] LABS: Anion Gap 14 (12-20); Blood Urea Nitrogen 22 mg/dL (9-16); Calcium 8.8 mg/dL (8.4-10.2); Carbon Dioxide 24 mmol/L (22-29); Chloride 99 mmol/L (96-108); Creatinine Clr Calc Pharmacy 39.6; Estimated Glomerular Filt Rate 47; Glucose Random 107 mg/dL (60-115); Potassium 4.9 mmol/L (3.3-5.1); Sodium 132 mmol/L (135-145)
[2022-01-12 15:22] LABS: Band Neutrophils Percent 5 % (3-5); Basophils Percent Manual 3 % (0-2); Blast Percent 8 %; Eosinophils Percent Manual 1 % (0-4); Giant Platelet PRESENT; Large Platelet PRESENT; Lymphocytes Percent Manual 7 % (20-40); Macrocytosis 1+ (5-14) /OIF; Metamyelocytes Percent 4 %; Microcytosis 1+ (5-14) /OIF; Monocytes Percent Manual 9 % (2-11); Myelocytes Percent 1 %; Neutrophils Percent Manual 59 % (45-73); Nucleated Red Blood Cells 8 /100WBC (0-0); Platelet Estimate NORMAL (NORMAL); Platelet Morphology Comment AGRANULAR; Promyelocytes Percent 3 %; RBC Morphology NOTED
[2022-01-12 15:23] LABS: Acanthocytes 1+ (0-2) /OIF; Basophilic Stippling 1+ (0-2) /OIF; Burr Cells 1+ (0-2) /OIF; Ovalocytes 1+ (5-14) /OIF; Polychromasia 3+ (>5) /OIF; Tear Drop Cells 1+ (0-2) /OIF
[2022-01-12 15:25] LABS: WBC Morphology Comment HYPOGRANULAR
[2022-01-12 15:27] LABS: Basophils Abs Manual 0.9 X10*3/uL (0.0-0.2); Blastocytes Absolute 2.3 X10*3/uL; Eosinophils Absolute Manual 0.3 X10*3/uL (0.0-0.4); Metamyelocytes Absolute 1.1 X10*3/uL; Monocytes Absolute Manual 2.6 X10*3/uL (0.1-1.2); Myelocytes Absolute 0.3 X10*/uL; Neutrophils Absolute Manual 18.3 X10*3/uL (2.0-8.3); Promyelocytes Absolute 0.9 X10*3/uL; White Blood Count 28.6 X10*3/uL (4.8-10.8)
== END 2022-01-12 18:00 | disposition left against medical advice (07) ==
PROVIDERS: Emergency Provider Emergency Medicine; PCP Internal Medicine
DX: R42 Dizziness and giddiness (principal); R07.89 Other chest pain; M54.50 Low back pain, unspecified; R51.9 Headache, unspecified; Z79.899 Other long term (current) drug therapy
CPT/HCPCS: 36415; 80048; 84484; 85007; 85027; 93005; 99283; 99284

== ENCOUNTER 2022-01-13 10:37 | Outpatient (REF) | payer MEDICARE, OTHER, SELFPAY ==
--- NOTE | ~2022-01-13 | US_ITS ---
EXAMINATION: US ABDOMEN COMPLETE CLINICAL INFORMATION: Epigastric pain. Abdominal distention.. COMPARISON: None TECHNIQUE: Real-time imaging of the abdominal viscera. FINDINGS: PANCREAS: Normal. ABDOMINAL AORTA: The proximal, mid, and distal segments are normal in caliber. INFERIOR VENA CAVA: Visualized portions are normal. LIVER: The liver is normal in size. The liver contour is normal. Parenchymal echogenicity is normal. No focal hepatic lesion. There is mild intrahepatic biliary duct dilatation seen. GALLBLADDER: Normal. The gallbladder is physiologically distended without evidence of stones, sludge, polyps, wall thickening or pericholecystic fluid. COMMON BILE DUCT: Normal in caliber measuring 0.47 cm in diameter. RIGHT KIDNEY: Normal. No hydronephrosis. No renal calculi or focal parenchymal lesions. The kidney measures 10.0 cm in maximum dimension. LEFT KIDNEY: Normal. No hydronephrosis. No renal calculi or focal parenchymal lesions. The kidney measures 10.0 cm in maximum dimension. SPLEEN: The spleen is enlarged The spleen measures 13.8, 1.5 and 1.5 cm in maximum dimension. FREE FLUID: None. US/US abdomen complete IMPRESSION: Mild intrahepatic ductal dilation otherwise unremarkable liver and gallbladder. Mild splenomegaly measuring 13 cm in length. Rest of the abdominal ultrasound is unremarkable
== END 2022-01-13 10:38 | disposition home or self-care (01) ==
LOC: HO.HMGCX 10:37
PROVIDERS: PCP Internal Medicine; Visit Provider Internal Medicine
DX: R10.13 Epigastric pain (principal); R14.2 Eructation
CPT/HCPCS: 76700

== ENCOUNTER → 2022-02-10 10:27 | Outpatient (BNVA) | payer MEDICARE, OTHER, SELFPAY | PROVIDERS: PCP Internal Medicine; Visit Provider Orthopaedic Surgery | DX: M17.0 Bilateral primary osteoarthritis of knee (principal); D75.81 Myelofibrosis | CPT/HCPCS: 99212 ==

== ENCOUNTER 2022-02-23 08:01 | Outpatient (REF) | payer MEDICARE, OTHER, SELFPAY ==
--- NOTE | ~2022-02-23 | MM_ITS ---
EXAMINATION: BONE DENSITOMETRY CLINICAL INDICATION: Age-related osteoporosis without current pathological fracture. COMPARISON: Baseline BD dated 04/28/2008. TECHNIQUE: Using a [employer] DXA System (software version: 13.1) manufactured by [employer], dual-energy x-ray absorptiometry was performed of the lumbar spine and left hip. The images are of good technical quality. Summary results are attached. FINDINGS: AP SPINE L1-L4: Current: BMD 1.483 g/cm2, Z-score 4.4, T-score 2.5, normal, 24.8% increase from baseline (<5% change is not significant). Baseline: BMD 1.188 g/cm2. LEFT FEMUR, NECK: Current: BMD 0.887 g/cm2, Z-score 1.0, T-score -1.1, osteopenia. Baseline: BMD 0.831 g/cm2. LEFT FEMUR, TOTAL: Current: BMD 0.954 g/cm2, Z-score 1.5, T-score -0.4, normal, 6.6% increase from baseline (<5% change is not significant). Baseline: BMD 0.895 g/cm2. IDENTIFIED RISK FACTORS: Early menopause, secondary osteoporosis, hysterectomy, bilateral oophorectomy. HISTORY OF FRACTURE: None listed. MEDICATIONS: Calcium. MM/XR DEXA axial skeleton IMPRESSION: 1. DIAGNOSIS: Osteopenia based on the lowest T-score value of -1.1 in the femoral neck applying World Health Organization criteria. 2. 10-YEAR FRACTURE RISK PREDICTION, FRAX: Major osteoporotic fracture (clinical spine, forearm, hip or shoulder) 9.9%. Hip fracture 1.8%. 3. Treatment Recommendations: NOF guidelines recommend consideration for treatment in postmenopausal women and men age 50 and older presenting with the following: -A hip or vertebral (clinical or morphometric) fracture. -T-score less than or equal to -2.5 at the femoral neck or spine after appropriate evaluation to exclude secondary causes. -Low bone mass at the hip or spine and a 10-year fracture probability by FRAX of greater than or equal to 3% for hip fracture or greater than or equal to 20% for major osteoporotic fracture based on the [place] adapted WHO algorithm. 4. Other Recommendations: All treatment decisions require clinical judgment and consideration of individual patient factors, including patient preferences, comorbidities, previous drug use, risk factors not captured in the FRAX model (e.g. frailty, falls, vitamin D deficiency, increased bone turnover, interval significant decline in bone density) and possible under or overestimation of fracture risk by FRAX. Additional medical evaluation for secondary cause of low bone mineral density may be appropriate. FUTURE SCAN RECOMMENDATION: People with diagnosed cases of osteoporosis or at high risk for fracture should have regular bone mineral density tests. For patients eligible for Medicare, routine testing is allowed once every 2 years. The testing frequency can be increased to one year for patients who have rapidly progressing disease, those who are receiving or discontinuing medical therapy to restore bone mass, or have additional risk factors.
== END 2022-02-23 08:02 | disposition home or self-care (01) ==
LOC: HO.MAMMO 08:01
PROVIDERS: PCP Internal Medicine; Visit Provider Internal Medicine
DX: Z13.820 Encounter for screening for osteoporosis (principal); M81.0 Age-related osteoporosis without current pathological fracture; Z78.0 Asymptomatic menopausal state
CPT/HCPCS: 77080

== ENCOUNTER 2022-03-09 09:44 | Outpatient (REF) | payer MEDICARE, OTHER, SELFPAY ==
--- NOTE | ~2022-03-09 | US_ITS ---
EXAMINATION: US EXTRACRANIAL CAROTID DUPLEX, BILATERAL CLINICAL INFORMATION: Stroke COMPARISON: Carotid duplex on 05/06/2019 TECHNIQUE: Real-time ultrasound and Doppler techniques (integrating B-mode 2-D vascular images, Doppler spectral analysis and color-flow Doppler imaging) were utilized to interrogate the extracranial carotid arteries, the vertebral arteries and proximal subclavian arteries bilaterally. The degree of stenosis is determined by criteria similar to NASCET. FINDINGS: Right Side: 1. There is mild atherosclerotic plaque seen in the bifurcation/proximal ICA region. 2. The common carotid artery PSV proximally is 91 cm/s and distally 84 cm/s. 3. The proximal internal carotid artery velocities are 72 cm/s systolic and 12 cm/s diastolic. 4. The proximal external carotid artery PSV is 67 cm/s. 5. The vertebral artery shows antegrade flow. 6. The subclavian artery waveforms are normal. Left Side: 1. There is mild atherosclerotic plaque seen in the bifurcation/proximal ICA region. 2. The common carotid artery PSV proximally is 76 cm/s and distally 70 cm/s. 3. The proximal internal carotid artery velocities are 89 cm/s systolic and 17 cm/s diastolic. 4. The proximal external carotid artery PSV is 108 cm/s. 5. The vertebral artery shows antegrade flow. 6. The subclavian artery waveforms are normal. US/US carotid duplex BI IMPRESSION: 1. RIGHT: Minimal, non-hemodynamically significant stenosis of the proximal right internal carotid artery corresponding to a 0-49% stenosis by velocity criteria. 2. LEFT: Minimal, non-hemodynamically significant stenosis of the proximal left internal carotid artery corresponding to a 0-49% stenosis by velocity criteria.
== END 2022-03-09 09:45 | disposition home or self-care (01) ==
LOC: HO.HMGCX 09:44
PROVIDERS: PCP Internal Medicine; Visit Provider Psychiatry & Neurology Neurology
DX: Z13.89 Encounter for screening for other disorder (principal)
CPT/HCPCS: 93880

== ENCOUNTER 2022-03-09 14:13 | Outpatient (REF) | payer MEDICARE, OTHER, SELFPAY ==
--- NOTE | ~2022-03-09 | MR_ITS ---
EXAMINATION: MR BRAIN WITHOUT CONTRAST CLINICAL INFORMATION: Stroke. COMPARISON: Head CT 12/08/2021. Brain MRI 03/06/2018. TECHNIQUE: Multiplanar, multisequence imaging of the brain was performed without intravenous contrast. FINDINGS: There is no acute infarction, mass, hemorrhage, or extra-axial collection. The ventricles and sulci are commensurate with mild degree of brain parenchymal volume loss noted. There is no hydrocephalus. A few mild nonspecific foci of T2/FLAIR hyperintensity are seen within the cerebral white matter, most compatible with mild chronic microangiopathy and without significant change from prior. There is a stable small focus of dural ossification along the left frontal convexity without mass effect. The flow voids of the major intracranial arteries appear intact. The bones and extracranial soft tissues are unremarkable. MR/MR head/brain wo con IMPRESSION: No acute infarct, mass lesion, intracranial hemorrhage, or evidence of hydrocephalus. Background changes of mild chronic microangiopathy without progression since 2018.
== END 2022-03-09 14:14 | disposition home or self-care (01) ==
LOC: HO.MRI 14:13
PROVIDERS: Visit Provider Psychiatry & Neurology Neurology
DX: I63.9 Cerebral infarction, unspecified (principal)
CPT/HCPCS: 70551; 93880

== ENCOUNTER → 2022-03-15 14:46 | Outpatient (BNVA) | payer MEDICARE, OTHER, SELFPAY | PROVIDERS: PCP Internal Medicine; Visit Provider Nurse Practitioner Family | DX: M17.0 Bilateral primary osteoarthritis of knee (principal); M25.561 Pain in right knee; M25.562 Pain in left knee | CPT/HCPCS: 99202 ==

== ENCOUNTER → 2022-04-01 09:52 | Outpatient (BNVA) | payer MEDICARE, OTHER, SELFPAY | PROVIDERS: PCP Internal Medicine; Visit Provider Orthopaedic Surgery | DX: M17.0 Bilateral primary osteoarthritis of knee (principal) | CPT/HCPCS: 20610; 99212; J7318 ==

== ENCOUNTER 2022-04-13 08:51 | Outpatient (REF) | payer MEDICARE, OTHER, SELFPAY ==
--- NOTE | ~2022-04-13 | US_ITS ---
EXAMINATION: US ABDOMEN COMPLETE CLINICAL INFORMATION: Abdominal discomfort, epigastric. COMPARISON: Ultrasound abdomen complete 01/13/2022 and 04/15/2019. CT abdomen and pelvis 03/21/2021. X-ray abdomen KUB 02/04/2020. TECHNIQUE: Real-time imaging of the abdominal viscera. FINDINGS: PANCREAS: Normal. ABDOMINAL AORTA: The proximal, mid, and distal segments are normal in caliber. INFERIOR VENA CAVA: Visualized portions are normal. LIVER: Normal. The liver is normal in size. The liver contour is normal. Parenchymal echogenicity is normal. No focal hepatic lesion. There is no intrahepatic biliary duct dilatation seen. GALLBLADDER: Normal. The gallbladder is physiologically distended without evidence of stones, sludge, polyps, wall thickening or pericholecystic fluid. COMMON BILE DUCT: Normal in caliber measuring 0.38 cm in diameter. RIGHT KIDNEY: Normal. No hydronephrosis. No renal calculi or focal parenchymal lesions. The kidney measures 9.3 cm in maximum dimension. LEFT KIDNEY: Normal. No hydronephrosis. No renal calculi or focal parenchymal lesions. The kidney measures 9.8 cm in maximum dimension. SPLEEN: The spleen is enlarged. The spleen measures 20 cm in maximum dimension. There is a 1.5 cm splenule. FREE FLUID: None. US/US abdomen complete IMPRESSION: Enlarged spleen similar to previous exam.
[2022-04-13 11:40] LABS: Hematocrit 29.3 % (37.0-47.0); Hemoglobin 9.4 g/dl (12.0-16.0); Immature Retic Fraction 36.8 % (3.0-15.9); Mean Corpuscular HGB Conc 32.1 g/dl (31.0-35.0); Mean Corpuscular Hemoglobin 30.4 pg (27.0-33.0); Mean Corpuscular Volume 94.8 fL (80.0-98.0); Mean Platelet Volume 11.3 fL (9.4-12.3); Platelet Count 154 X10*3/uL (160-400); Red Blood Count 3.09 X10*6/uL (4.20-5.50); Red Cell Distribution Width 17.6 % (11.0-16.0); Retic HGB Equivalent 33.8 pg (30.0-35.0); Reticulocyte Percent 5.3 % (0.5-1.8); Reticulocytes Absolute 0.164 X10*6/uL (0.026-0.095); White Blood Count 8.2 X10*3/uL (4.8-10.8)
[2022-04-13 11:43] LABS: NRBC Pct Auto 2.5 /100WBC (0.0-0.2)
[2022-04-13 12:03] LABS: Alanine Aminotransferase 41 U/L (0-31); Albumin Level 4.7 g/dL (3.5-5.0); Alkaline Phosphatase 154 U/L (39-117); Anion Gap 15 (12-20); Aspartate Amino Transferase 36 U/L (5-31); Bilirubin Total 0.6 mg/dL (0.0-1.0); Blood Urea Nitrogen 16 mg/dL (9-16); Calcium 9.3 mg/dL (8.4-10.2); Carbon Dioxide 25 mmol/L (22-29); Chloride 105 mmol/L (96-108); Cholesterol 165 mg/dL; Estimated Glomerular Filt Rate 54; Glucose Random 94 mg/dL (60-115); HDL Cholesterol 31 mg/dL; Iron 128 mcg/dL (30-160); LDL Cholesterol Calculated 94 mg/dl; Percent Iron Saturation 42 % (15-50); Potassium 4.2 mmol/L (3.3-5.1); Sodium 141 mmol/L (135-145); Total Iron Binding Capacity 305 mcg/dL (228-428); Total Protein 6.9 g/dL (6.5-8.0); Triglycerides 202 mg/dL; Unsaturated Iron Binding 177 ug/dL
[2022-04-13 12:08] LABS: Ferritin 109 ng/mL (10-250); Free T4 (Free Thyroxine) 0.99 ng/dL (0.71-1.85); Vitamin D 25-OH Total 33.7 ng/mL (>30)
[2022-04-13 12:20] LABS: Folate > 20.0 ng/mL (> or = 4.0); Vitamin B12 672 pg/mL (200-900)
[2022-04-13 12:22] LABS: Band Neutrophils Percent 15 % (3-5); Basophils Abs Manual 0.3 X10*3/uL (0.0-0.2); Basophils Percent Manual 4 % (0-2); Lymphocytes Percent Manual 12 % (20-40); Metamyelocytes Absolute 0.2 X10*3/uL; Metamyelocytes Percent 3 %; Monocytes Absolute Manual 0.7 X10*3/uL (0.1-1.2); Monocytes Percent Manual 8 % (2-11); Myelocytes Absolute 0.2 X10*/uL; Myelocytes Percent 2 %; Neutrophils Absolute Manual 5.6 X10*3/uL (2.0-8.3); Neutrophils Percent Manual 53 % (45-73)
[2022-04-13 12:23] LABS: Blast Percent 3 %; Blastocytes Absolute 0.2 X10*3/uL; Nucleated Red Blood Cells 2 /100WBC (0-0); RBC Morphology NOTED
[2022-04-13 12:24] LABS: Ovalocytes 1+ (5-14) /OIF
[2022-04-13 12:25] LABS: Basophilic Stippling 1+ (0-2) /OIF; Polychromasia 1+ (0-2) /OIF; Tear Drop Cells 1+ (0-2) /OIF
[2022-04-13 12:27] LABS: Large Platelet PRESENT; Platelet Estimate SLIGHTLY DECREASED (NORMAL); Platelet Morphology Comment NOTED
== END 2022-04-13 08:52 | disposition home or self-care (01) ==
LOC: HO.HMGCX 08:51
PROVIDERS: Absent Provider Internal Medicine; PCP Internal Medicine; Visit Provider Internal Medicine
DX: R10.13 Epigastric pain (principal); R41.0 Disorientation, unspecified; E78.00 Pure hypercholesterolemia, unspecified; D64.9 Anemia, unspecified; M81.0 Age-related osteoporosis without current pathological fracture
CPT/HCPCS: 36415; 76700; 80053; 80061; 82306; 82607; 82728; 82746; 83540; 84439; 84443; 85007; 85025; 85027; 85045

== ENCOUNTER → 2022-04-25 12:56 | Outpatient (REF) | payer MEDICARE, OTHER, SELFPAY ==
--- NOTE | 2022-04-25 12:58 | CA_ITS ---
Transthoracic Echocardiogram Patient (Last, First, Middle): Ela Bronson R Gender: Female Date of : 1945 Age: 76 Procedure Date: 04/25/2022 Procedure Type: Transthoracic Echocardiogram Location: OP Height: 167.64 cm Weight: 62.14 kg BSA: 1.70 m2 Heart Rate: 75 bpm BP: 145 / 55 mmHg Log Feeder: SELVIN Referring MD: Alejandro Larry MD Symptoms: I10 - Essential (primary) hypertension Study Quality: Adequate ECG Rhythm: Sinus Conclusions: - The left ventricular systolic function is normal. The calculated ejection fraction is 59% by biplane method. - There is moderate posterior mitral annular calcification. - There is mild tricuspid valve regurgitation. Findings Left Ventricle Normal left ventricular cavity size. There is mildly increased left ventricular wall thickness. The left ventricular systolic function is normal. The calculated ejection fraction is 59% by biplane method. There is no evidence of regional wall motion abnormalities. Evidence suggests grade I (mild) diastolic dysfunction. There is moderate septal and moderate basal asymmetric hypertrophy. Atria The left atrium is moderately dilated. The right atrium is normal in size. Aortic Valve There is a normal trileaflet aortic valve. There is no aortic valve stenosis. There is no aortic valve regurgitation. Mitral Valve There is moderate posterior mitral annular calcification. There is trace mitral valve regurgitation. There is no mitral valve stenosis. Pulmonic Valve The pulmonic valve is likely normal. Tricuspid Valve Normal tricuspid valve structure. There is mild tricuspid valve regurgitation. There is no evidence of pulmonary hypertension. Great Vessels The asc aorta is normal in size. Venous The inferior vena cava is normal in size and collapses greater than 50% with inspiration. Pericardium/Pleural There is a trivial pericardial effusion. Prior Study Comparison No significant change compared to prior study dated: 02/22/2017. Measurements 2D Linear Measurements IVSd: 1.25 0.6-0.9/0.6-1.0 cm LVIDd: 4.23 3.9-5.3/4.2-5.9 cm LVIDd Index: 2.49 2.4-3.2/2.2-3.1 cm/m2 LVIDs: 2.50 2.0-3.6 cm LVPWd: 1.04 0.7-1.1 cm LA Diam: 3.80 2.7-3.8/3.0-4.0 cm LAIDs Index: 2.24 1.5-2.3 cm/m2 LV Mass: 209.54 67-162/88-224 g LV Mass Index: 123.26 43-95/49-115 g/m2 LVOT Diam: 1.80 3.0+(-)1.3 cm 2D Systolic Function EF 4C: 57.20 >55% EF 2C: 62.00 >55% EF BiP: 59.20 >55% Mitral Valve MV Pk E: 1.17 MV PK A: 1.32 MV Decel Time: 288.00 E/A: 0.90 E'Lateral: 5.64 E'Medial: 5.73 E/E' Med: 20.40 E/E' Lat: 20.70 PHT: 84.00 MVA PHT: 2.62 Decel Green: 4.07 Aortic Valve AoV Pk Jefe: 1.80 AoV Mn Jefe: 1.20 AoV VTI: 0.38 AoV Pk Grad: 13.00 Aov Mn Grad: 7.00 POOJA Cont.VTI: 2.05 LVOT LVOT Pk Jefe: 1.37 LVOT Mn Jefe: 0.91 LVOT VTI: 0.30 LVOT Pk Grad: 8.00 LVOT Mn Grad: 4.00 LVOT Diam: 1.80 LVOT Area: 2.54 Diastolic Function MV Pk E: 1.17 MV Pk A: 1.32 E/A: 0.90 E'Medial: 5.73 E/E' Med: 20.40 E' Laterial: 5.64 E/E' Lat: 20.70 Right Ventricle TAPSE (mm): 28.20 TVS' Jefe: 15.80 Tricuspid Valve TR Pk Jefe: 2.79 TR Pk Grad: 31.00 RA Press: 3.00 RVSP: 34.00 Great Vessels Aorta Sinus of Valsalva: 3.00 2.0-3.5 cm Ao Asc: 3.30 2.1-3.4 cm Pulmonary Valve PV Pk Jefe: 1.40 Peak PV Grad: 8.00 Updated in Other Vendor System with Status of Final Pierre Mills MD electronically signed on 04/26/2022 11:34:50 AM with status of Final
== END ==
LOC: HO.CARD 12:56
PROVIDERS: PCP Internal Medicine; Visit Provider Internal Medicine
DX: I10 Essential (primary) hypertension (principal); R41.0 Disorientation, unspecified
CPT/HCPCS: 93306

== ENCOUNTER 2023-01-30 16:22 | Outpatient (AMB) | payer MEDICARE, OTHER, SELFPAY ==
--- NOTE | 2023-01-30 16:24 | MHC.PC.OV ---
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 Accompanied by: Self / Same As Patient Allergies Flu vaccine Allergy (Unknown, Verified 01/30/23 16:25) Whole arm redness/itchy Medication List - Last Reconciled 01/30/23 by Alejandro Larry MD allopurinol 300 mg PO DAILY amlodipine 5 mg PO DAILY esomeprazole magnesium 20 mg PO DAILY lorazepam 0.5 mg PO BEDTIME melatonin 5 mg PO DAILY melatonin mg PO .QHS PRN multivit with min-folic acid 200 mcg (Adult Multivitamin Gummies) 1 tab PO DAILY olmesartan (Benicar) 40 mg PO DAILY oxycodone 5 mg PO BID PRN ruxolitinib (Jakafi) 20 mg PO BID Tobacco use date assessed: 01/30/23 Fall risk assessment: No Falls in past year Last assessed Fall Risk: 01/30/23 Dental Screening Dental Screen Date: 01/30/23 Did you have a dental visit in the last 12 months?: Yes Did you have a dental problem in the last 6 months where you did not have access to dental care?: No Was dental information given to patient?: Patient has dentist HPI 6 month f/u HPI Details 77-year-old female with osteoporosis hypertension GERD myeloproliferative disorder osteoarthritis coming in for follow-up. Last seen in March 2022 having confusion and I am MRI and ultrasound was requested. Review of the notes November [address] Rucker diagnosis of post polycythemic myelofibrosis does have early satiety and abdominal fullness patient was treated with pacritinib having weakness joint aches nausea vomiting diarrhea and abdominal pain patient is continued on ruxolitinib 20 mg twice a day. Patient last so nephrology March 2022 blood pressure is well controlled mild chronic kidney disease anemia because of Hemant echocardiogram done April 2022The left ventricular systolic function is normal. The calculated ejection fraction is 59% by biplane method. - There is moderate posterior mitral annular calcification. - There is mild tricuspid valve regurgitation. Patient also had CT scan of the head which revealed negative results noted on the blood work in February elevated liver function test and ultrasound was done showing splenomegaly. Patient was recently seen having depression and asking for depression medication. Sertraline started but since the tranfusion did not need sertraline. [facility] Medical History Acute alteration in mental status Anxiety Burping CAP (community acquired pneumonia) Cough Epigastric pain Fracture of left side of mandible GERD (gastroesophageal reflux disease) Hypertension Hypertriglyceridemia Lactic acidosis Leg cramps Localized osteoarthritis of both knees Mandibular fracture Migraine Myeloproliferative disorder Oral candidiasis Osteoarthritis of left knee SBO (small bowel obstruction) Surgical History History of arthroscopy of left knee History of colonoscopy History of esophagogastroduodenoscopy (EGD) History of reduction of closed fracture History of total abdominal hysterectomy and bilateral salpingo-oophorectomy Family History Father Lung cancer Emphysema lung Mother History of hip replacement History of knee replacement Brother Thyroid nodule Social History Household Members: Spouse Housing: House Do you presently have visiting nurse or other home services: No Alcohol intake: unknown Patient Tobacco Use Status: Never used Tobacco e-Cigarette/Vaping Use: Never Used Second Hand Smoke Exposure: No service: No Current occupational status: retired Cognitive needs: No Hearing needs: No Vision needs: Yes Questionnaire PHQ-9 Over the last 2 weeks, how often have you been bothered by any of the following problems? 1. Little interest or pleasure in doing things: not at all 2. Feeling down, depressed, or hopeless: not at all 3. Trouble falling or staying asleep, or sleeping too much: not at all 4. Feeling tired or having little energy: not at all 5. Poor appetite or overeating: not at all 6. Feeling bad about yourself - or that you are a failure or have let yourself or your family down: not at all 7. Trouble concentrating on things, such as reading the newspaper or watching television: not at all 8. Moving or speaking so slowly that other people could have noticed. Or the opposite - being so fidgety or restless that you have been moving around a lot more than usual: not at all 9. Thoughts that you would be better off or of hurting yourself in some way: not at all Total score: 0 Depression Screening Interpretation: Negative 18355 - PHQ-9 Billing: Yes Source: Developed by Drs. George Spears, Denice Macedo, Charles Urrutia and colleagues, with an educational pal from [employer]. Thrive Questionnaire Date Thrive assessed: 01/30/23 I am a: Patient What is your living situation today?: I have a steady place to live Within the past 12 months, did the food you bought not last and you didn't have the money to get more?: Never true Within the past 12 months, did you worry whether your food would run out before you got money to buy more?: Never true Do you have trouble paying for medicines?: No Do you have trouble getting transportation to medical appointments?: No Do you have trouble paying your heating and electricity bill?: No Do you have trouble taking care of your child, family member or friend?: No Do you have trouble with day-to-day activities such as bathing, preparing meals, shopping, managing finances, etc.?: No Are you currently unemployed and looking for a job?: No Are you interested in more education?: No Please select the resources that you would like help with: None Currently or been in a relationship where the following occur: no concerns reported ADRIAN-7 AMB Questionnaire ADRIAN-7 Date ADRIAN - 7 assessed: 01/30/23 Feeling nervous, anxious, or on edge: 0 = Not at all Not being able to stop or control worryin = Not at all Worrying too much about different things: 0 = Not at all Trouble relaxin = Not at all Being so restless that it is hard to sit still: 0 = Not at all Becoming easily annoyed or irritable: 0 = Not at all Feeling afraid as if something awful might happen: 0 = Not at all Total ADRIAN-7 score (0-4 normal; 5-9 mild; 10-14 moderate; 15-21 severe): 0 Source: Developed by Drs. George Spears, Charles Dobsonoenke and colleagues, with an educational pal from [employer]. ADRIAN-7 Assessment Billing ADRIAN-7 Assessment Tool: ADRIAN-7 Assessment 53993 Physical exam (Primary Care) Vital Signs: Last Vital Signs Pulse 78 01/30/23 16:28 BP 140/72 H 01/30/23 16:28 Pulse Ox 98 01/30/23 16:28 BMI result Body Mass Index 21.0 Tobacco/Smoking Status: Tobacco use Status Tobacco use date assessed 01/30/23 01/30/23 16:25 Patient Tobacco Use Status Never used Tobacco 01/30/23 16:24 e-Cigarette/Vaping Use Never Used 01/30/23 16:24 Depression Screening Interpretation: Negative Thrive Assessment: Date of Thrive Assessment Date Thrive assessed 11/08/21 01/30/23 16:24 Currently or been in a relationship where the following occur: no concerns reported Const General: alert; No acute distress Eyes Conjunctivae: conjunctivae normal Resp Auscultation: clear to auscultation bilaterally Cardio Rate: regular rate Rhythm: regular rhythm GI Inspection: Yes normal to inspection Extrem General: Yes normal to inspection and No edema Assessment and Plan Assessment & Plan (1) Myeloproliferative disorder: Comment: Polycythemia vera/myelofibrosis Dr. 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 Craven, EGD dilatation Code(s): K21.9 - Gastro-esophageal reflux disease without esophagitis Qualifiers: Esophagitis presence: without esophagitis Qualified Code(s): K21.9 - Gastro-esophageal reflux disease without esophagitis Plan: Avoid the foods that causes that usually spicy foods, tomato products, juices, coffee, soda and foods that your sensitive to. After eating do not lie down, allow 3-4 hours before in lie down. And keep the head of bed above 30 degrees to avoid the acid from going up. (3) Hypertension: Comment: Dr. Villatoro Code(s): I10 - Essential (primary) hypertension Qualifiers: Hypertension type: essential hypertension Qualified Code(s): I10 - Essential (primary) hypertension Plan: Continue with blood pressure medication. Decrease salt intake and exercise patient on almost start on 40 mg once a day and amlodipine 5 mg once a day (4) Depression: Code(s): F32.A - Depression, unspecified Plan: Continue with present medication Medications: Discontinued sertraline Discontinued Reason: Doctor's Order 25 mg PO DAILY 30 tabs 2RF F32.A - Depression, unspecified Coding Level of Care Code Est Pt Level 4 (94836) Diagnoses Myeloproliferative disorder D47.1 GERD (gastroesophageal reflux disease) K21.9 Esophagitis presence: without esophagitis Hypertension I10 Hypertension type: essential hypertension Depression F32.A Additional Codes ADRIAN-7 Assessment Billing - ADRIAN-7 Assessment Tool: ADRIAN-7 Assessment [id number] ([id number])
[2023-01-30 16:28] VITALS: BP 140/72; PULSE 78; O2SAT 98; BMI 21.0
== END 2023-01-30 17:02 | disposition home or self-care (01) ==
PROVIDERS: Visit Provider Internal Medicine
DX: D47.1 Chronic myeloproliferative disease (principal); K21.9 Gastro-esophageal reflux disease without esophagitis; I10 Essential (primary) hypertension; F32.A Depression, unspecified
CPT/HCPCS: 99214

== ENCOUNTER 2023-04-26 10:53 | Outpatient (AMB) | payer MEDICARE, OTHER, SELFPAY ==
--- NOTE | 2023-04-26 11:13 | HO.NEPHOV ---
Intake Vital Signs 04/26/23 11:15 Weight 133 lb 6 oz Blood Pressure Location Lt brachial Position Sitting Intake Visit Reasons: CKD Allergies Flu vaccine Allergy (Unknown, Verified 04/26/23 11:13) Whole arm redness/itchy HPI HPI Comments History of Present Illness Details Pleasant woman with HTN in a setting of Myelodysplasia Recently had severe anemia requiring blood transfusion BP has been better controlled. Assessment & Plan Assessment & Plan (1) Myeloproliferative disorder: Comment: Polycythemia vera/myelofibrosis Dr. 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 Villatoro Code(s): I10 - Essential (primary) hypertension Qualifiers: Hypertension type: essential hypertension Qualified Code(s): I10 - Essential (primary) hypertension Plan HTN: BP is acceptable Discussed low salt diet No change in anti hypertensives If SBP stays above 140, would increase AMlodipine Renal function is stable. Myelodysplasia /Anemia Follows with Coding Level of Care Code Est Pt Level 3 (73510) Diagnoses Myeloproliferative disorder D47.1 Essential hypertension I10 Hypertension type: essential hypertension [facility] Medical History Acute alteration in mental status Anxiety Burping CAP (community acquired pneumonia) Cough Epigastric pain Fracture of left side of mandible GERD (gastroesophageal reflux disease) Hypertension Hypertriglyceridemia Lactic acidosis Leg cramps Localized osteoarthritis of both knees Mandibular fracture Migraine Myeloproliferative disorder Oral candidiasis Osteoarthritis of left knee SBO (small bowel obstruction) Surgical History History of arthroscopy of left knee History of colonoscopy History of esophagogastroduodenoscopy (EGD) History of reduction of closed fracture History of total abdominal hysterectomy and bilateral salpingo-oophorectomy Family History Father Lung cancer Emphysema lung Mother History of hip replacement History of knee replacement Brother Thyroid nodule Social History Household Members: Spouse Housing: House Do you presently have visiting nurse or other home services: No Alcohol intake: unknown Patient Tobacco Use Status: Never used Tobacco e-Cigarette/Vaping Use: Never Used Second Hand Smoke Exposure: No service: No Current occupational status: retired Cognitive needs: No Hearing needs: No Vision needs: Yes
== END 2023-04-26 11:41 | disposition home or self-care (01) ==
PROVIDERS: PCP Internal Medicine; Visit Provider Internal Medicine Hypertension Specialist
DX: D47.1 Chronic myeloproliferative disease (principal); I10 Essential (primary) hypertension
CPT/HCPCS: 99214

== ENCOUNTER → 2023-04-26 10:53 | Outpatient (BNVA) | payer MEDICARE, OTHER, SELFPAY | PROVIDERS: PCP Internal Medicine; Visit Provider Internal Medicine Hypertension Specialist | DX: D47.1 Chronic myeloproliferative disease (principal); I10 Essential (primary) hypertension; D64.9 Anemia, unspecified | CPT/HCPCS: 99212 ==